=== PATIENT | male | born 1970 | race Hispanic/Latino ===

== ENCOUNTER 2018-01-14 06:08 | Emergency (ER) | payer MEDICARE ==
[~2018-01-14 06:08] MED LIST: GLIM2TAB3 PO; INSU100V12 SQ; LOSA50TA37 PO; SIMV20TA6 PO; TYL3B PO
[2018-01-14 07:12] LABS: BASOPHILS % (AUTO) 0.7 % (0.0-5.0); EOSINOPHILS % (AUTO) 2.2 % (0.0-8.0); HEMATOCRIT 43.7 % (42-54); LYMPHOCYTES % (AUTO) 22.5 % (21.0-51.0); MEAN CORPUSCULAR HEMOGLOBIN 28.8 pg (27.0-33.0); MEAN CORPUSCULAR HGB CONC 33.9 g/dL (32.0-36.0); MEAN CORPUSCULAR VOLUME 84.9 fL (79-99); NEUTROPHILS % (AUTO) 65.6 % (40.0-77.0); NUCLEATED RED BLOOD CELLS 0.1 % (0.0-0.19); PLATELET COUNT (AUTO) 256 K/uL (130-400); RED BLOOD CELL COUNT(AUTO) 5.15 MIL/uL (4.50-6.20); RED CELL DISTRIBUTION WIDTH 14.6 % (11.0-15.5); WHITE BLOOD COUNT (AUTO) 12.2 K/uL (4.8-10.8)
[2018-01-14 07:35] LABS: CREATININE 1.2 mg/dL (0.5-1.5)
[2018-01-14 07:41] LABS: ALBUMIN 3.1 g/dL (3.5-5.0); BILIRUBIN,TOTAL 0.4 mg/dL (0.2-1.0); TOTAL PROTEIN, SERUM 8.2 g/dL (6.0-8.3)
[2018-01-14] MEDS ORDERED: DiphenhydrAMINE HCL 50 MG/ML VIAL ONE (08:09)
[2018-01-14 08:23] LABS: SALICYLATE 4.5 mg/dL (2.8-20.0)
[2018-01-14 08:42] LABS: ACETAMINOPHEN < 1 mcg/mL (10-29); ALCOHOL, BLOOD < 3 mg/dL (0-10)
[2018-01-14 09:08] LABS: AMPHET/METH SCREEN,URINE NEGATIVE (NEGATIVE); BARBITURATE SCREEN, URINE NEGATIVE (NEGATIVE); BENZODIAZEPINES SCREEN,URINE NEGATIVE (NEGATIVE); CANNABINOID SCREEN,URINE POSITIVE (NEGATIVE); COCAINE SCREEN,URINE NEGATIVE (NEGATIVE); OPIATE SCREEN,URINE NEGATIVE (NEGATIVE); PHENCYCLIDINE SCREEN,URINE NEGATIVE (NEGATIVE)
[2018-04-07] MEDS ORDERED: VALS160T28 PO (22:42)
== END 2018-01-14 12:04 | disposition home or self-care (01) ==
LOC: EDH 06:08
DX: F41.1 Generalized anxiety disorder (principal); G47.00 Insomnia, unspecified; E11.65 Type 2 diabetes mellitus with hyperglycemia; I10 Essential (primary) hypertension; E78.5 Hyperlipidemia, unspecified; Z88.8 Allergy status to other drugs, medicaments and biological substances; Z90.49 Acquired absence of other specified parts of digestive tract; F19.20 Other psychoactive substance dependence, uncomplicated
CPT/HCPCS: 36415; 80053; 80305; 85025; 93005; 96372; 99285; G0480 ×2; G0481; J1200

== ENCOUNTER 2018-04-07 12:53 | Inpatient (IN) | payer MEDICARE ==
[~2018-04-07] VITALS: Ht 180.3 cm; Wt 116.1 kg
[2018-04-07] MEDS ORDERED: SODIUM CHLORIDE 0.9% 1000ML 1,000 ML IV ONE (13:55)
[2018-04-07] MEDS ORDERED: KETOROLAC TROMETHAMINE 30MG/ML ONE (13:55)
[2018-04-07] MEDS ORDERED: ONDANSETRON HCL MDV 20ML 2 MG/ML VIAL ONE (13:55)
[2018-04-07 13:58] LABS: BASOPHILS % (AUTO) 0.6 % (0.0-5.0); EOSINOPHILS % (AUTO) 1.1 % (0.0-8.0); HEMATOCRIT 46.1 % (42-54); LYMPHOCYTES % (AUTO) 17.7 % (21.0-51.0); MEAN CORPUSCULAR HEMOGLOBIN 30.2 pg (27.0-33.0); MEAN CORPUSCULAR HGB CONC 34.8 g/dL (32.0-36.0); MEAN CORPUSCULAR VOLUME 86.9 fL (79-99); MONOCYTES % (AUTO) 6.4 % (3.0-13.0); NEUTROPHILS % (AUTO) 74.2 % (40.0-77.0); PLATELET COUNT (AUTO) 339 K/uL (130-400); RED BLOOD CELL COUNT(AUTO) 5.31 MIL/uL (4.50-6.20); RED CELL DISTRIBUTION WIDTH 12.8 % (11.0-15.5); WHITE BLOOD COUNT (AUTO) 18.1 K/uL (4.8-10.8)
[2018-04-07 14:03] LABS: APPEARANCE,URINE Clear (CLEAR); BILIRUBIN,URINE Negative (NEGATIVE); COLOR,URINE Yellow (YELLOW); GLUCOSE, URINE (UA) >=1000 mg/dL (NEGATIVE); KETONES,URINE Negative (NEGATIVE); LEUKOCYTE ESTERASE ,URINE Negative (NEGATIVE); NITRATE,URINE Negative (NEGATIVE); OCCULT BLOOD,URINE Trace (NEGATIVE); PROTEIN,URINE 300 (NEGATIVE)
[2018-04-07 14:10] LABS: CREATININE 1.3 mg/dL (0.5-1.5); POTASSIUM 4.4 mmol/L (3.5-5.1)
[2018-04-07 14:14] LABS: ALBUMIN 4.1 g/dL (3.5-5.0); BILIRUBIN,TOTAL 0.4 mg/dL (0.2-1.0); TOTAL PROTEIN, SERUM 9.3 g/dL (6.0-8.3)
[2018-04-07 14:33] LABS: BACTERIA,URINE Few /HPF (None Seen); RBC,URINE 0-1 /HPF (0-1); WBC,URINE 0-1 /HPF (0-1)
[2018-04-07] MEDS ORDERED: IOPAMIDOL-370 75 ML VIAL IV ONE (14:38)
[2018-04-07] MEDS ORDERED: MORPHINE SULFATE 4 MG/1ML SYG ONE ×3 (16:03→19:11)
[2018-04-07] MEDS ORDERED: CEFTRIAXONE SODIUM 1 GM ONE (16:03)
[2018-04-07] MEDS ORDERED: ONDANSETRON HCL 4 MG/2 ML VIAL ONE ×2 (17:11→19:11)
[2018-04-07] MEDS ORDERED: DICYCLOMINE HCL 10 MG/ML 2ML AMP IM ONE (17:12)
[2018-04-07] MEDS ORDERED: METRONIDAZOLE 500MG/100ML BAG 100 ML ONE (19:19)
[2018-04-07] MEDS ORDERED: ONDANSETRON HCL 4 MG/2 ML VIAL IVP PRN (20:45)
[2018-04-07] MEDS ORDERED: DEXTROSE 50%-WATER 50 ML DISP.SYRIN IV PRN (21:00)
[2018-04-07] MEDS: HUMALOG PO SS1 SQ SCH (21:00)
[2018-04-07] MEDS ORDERED: GLUCAGON 1MG KIT 1 MG ML IM PRN (21:00)
[2018-04-07 22:12] VITALS: BP 170/84
[2018-04-07] MEDS: SODIUM CHLORIDE 0.9% 1000ML 1,000 ML IV SCH (22:22)
[2018-04-07] MEDS: FAMOTIDINE/PF 20 MG/2 ML VIAL IV SCH (22:26)
[2018-04-07] MEDS ORDERED: ALPR2TAB7 PO (22:42)
[2018-04-07] MEDS ORDERED: GEMF600T3 PO (22:42)
[2018-04-07] MEDS ORDERED: INSU100C14 SQ (22:42)
[2018-04-07] MEDS ORDERED: ASPI81TA40 PO (22:42)
[2018-04-07] MEDS ORDERED: VALS160T29 PO (22:42)
[2018-04-07] MEDS ORDERED: INSU100V12 SQ (22:42)
[2018-04-07] MEDS ORDERED: DULO30CA51 PO (22:42)
[2018-04-07] MEDS ORDERED: CLOP75TA32 PO (22:42)
[2018-04-07] MEDS: MORPHINE SULFATE 4 MG/1ML SYG IVP PRN (22:54)
[2018-04-08 00:25] VITALS: BP 163/93
[2018-04-08] MEDS ORDERED: HYDRALAZINE HCL 20 MG/ML VIAL IV PRN (00:45)
[2018-04-08] MEDS: METRONIDAZOLE 500MG/100ML BAG 100 ML IVPB SCH ×3 (02:27→19:12)
[2018-04-08] MEDS: MORPHINE SULFATE 4 MG/1ML SYG IVP PRN ×4 (03:23→20:46)
[2018-04-08 04:55] VITALS: BP 155/93
[2018-04-08 05:40] LABS: HEMATOCRIT 42.4 % (42-54); MEAN CORPUSCULAR HEMOGLOBIN 30.4 pg (27.0-33.0); MEAN CORPUSCULAR HGB CONC 34.8 g/dL (32.0-36.0); MEAN CORPUSCULAR VOLUME 87.3 fL (79-99); NUCLEATED RED BLOOD CELLS 0.1 % (0.0-0.19); PLATELET COUNT (AUTO) 287 K/uL (130-400); RED BLOOD CELL COUNT(AUTO) 4.86 MIL/uL (4.50-6.20); RED CELL DISTRIBUTION WIDTH 12.8 % (11.0-15.5); WHITE BLOOD COUNT (AUTO) 15.9 K/uL (4.8-10.8)
[2018-04-08] MEDS: SODIUM CHLORIDE 0.9% 1000ML 1,000 ML IV SCH ×3 (05:43→20:47)
[2018-04-08 05:56] LABS: CREATININE 1.2 mg/dL (0.5-1.5)
[2018-04-08] MEDS ORDERED: INSULIN HUMULIN R 100 UNIT/ML 3ML IV SCH (06:30)
[2018-04-08] MEDS ORDERED: HYDROMORPHONE 1 MG/1 ML AMP IVP PRN ×2 (06:30→10:30)
[2018-04-08] MEDS ORDERED: DEXTROSE 50%-WATER 25 GM/50 ML VIAL IV SCH (06:30)
[2018-04-08] MEDS ORDERED: CALCIUM GLUCONATE 1 GM/10 ML VIAL IV SCH (06:30)
[2018-04-08] MEDS ORDERED: CALCIUM GLUCONATE 1 GM in SODIUM CHLORIDE 0.9% 50 ML IV SCH (06:43)
[2018-04-08] MEDS ORDERED: SODIUM POLYSTYRENE SULFONATE 15 GM/60 ML ML PO SCH (06:45)
[2018-04-08] MEDS ORDERED: DEXTROSE 50%-WATER 50 ML DISP.SYRIN IV SCH (07:00)
[2018-04-08] MEDS: HUMALOG PO SS1 SQ SCH ×3 (07:30→17:05)
[2018-04-08 08:00] VITALS: BP 164/83
[2018-04-08] MEDS: FAMOTIDINE/PF 20 MG/2 ML VIAL IV SCH ×2 (10:47→20:46)
[2018-04-08] MEDS: PROMETHAZINE HCL 25 MG/ML 1ML AMPULE IM PRN ×2 (10:47→23:40)
[2018-04-08 12:00] VITALS: BP 166/92
[2018-04-08] MEDS ORDERED: PHARMACY COMMUNICATION MISC SCH (15:30)
[2018-04-08 16:00] VITALS: BP 156/96
[2018-04-08] MEDS: LEVOFLOXACIN IV SCH (16:56)
[2018-04-08] MEDS: D5W IV SCH (16:56)
[2018-04-08 19:18] VITALS: BP 150/88
[2018-04-08] MEDS: INSULIN LISPRO 100 UNIT/ML 3ML SQ SCH (23:59)
[2018-04-09 00:15] VITALS: BP 163/92
[2018-04-09] MEDS: MORPHINE SULFATE 4 MG/1ML SYG IVP PRN ×5 (01:17→23:33)
[2018-04-09] MEDS: METRONIDAZOLE 500MG/100ML BAG 100 ML IVPB SCH ×3 (03:07→19:00)
[2018-04-09 04:10] VITALS: BP 148/80
[2018-04-09] MEDS: INSULIN LISPRO 100 UNIT/ML 3ML SQ SCH ×3 (06:06→22:05)
[2018-04-09 08:32] VITALS: BP 171/102
[2018-04-09] MEDS: FAMOTIDINE/PF 20 MG/2 ML VIAL IV SCH ×2 (09:40→21:49)
[2018-04-09] MEDS: SODIUM CHLORIDE 0.9% 1000ML 1,000 ML IV SCH ×2 (09:50→22:23)
[2018-04-09 12:08] VITALS: BP 141/93
[2018-04-09] MEDS: LEVOFLOXACIN IV SCH ×2 (12:30→17:18)
[2018-04-09] MEDS: D5W IV SCH ×2 (12:30→17:18)
[2018-04-09 15:26] VITALS: BP 159/95
[2018-04-09 19:25] VITALS: BP 151/89
[2018-04-10] VITALS (7 sets, daily range): BP systolic 125–163; BP diastolic 78–97
[2018-04-10] MEDS: METRONIDAZOLE 500MG/100ML BAG 100 ML IVPB SCH ×3 (03:23→19:47)
[2018-04-10] MEDS: INSULIN LISPRO 100 UNIT/ML 3ML SQ SCH ×4 (06:25→22:02)
[2018-04-10 07:09] LABS: BASOPHILS % (AUTO) 0.5 % (0.0-5.0); EOSINOPHILS % (AUTO) 1.8 % (0.0-8.0); HEMATOCRIT 38.8 % (42-54); LYMPHOCYTES % (AUTO) 17.4 % (21.0-51.0); MEAN CORPUSCULAR HEMOGLOBIN 30.4 pg (27.0-33.0); MEAN CORPUSCULAR HGB CONC 35.3 g/dL (32.0-36.0); MEAN CORPUSCULAR VOLUME 86.3 fL (79-99); MONOCYTES % (AUTO) 9.9 % (3.0-13.0); NEUTROPHILS % (AUTO) 70.4 % (40.0-77.0); PLATELET COUNT (AUTO) 270 K/uL (130-400); RED CELL DISTRIBUTION WIDTH 12.6 % (11.0-15.5); WHITE BLOOD COUNT (AUTO) 12.2 K/uL (4.8-10.8)
[2018-04-10 07:32] LABS: CREATININE 1.1 mg/dL (0.5-1.5); POTASSIUM 4.1 mmol/L (3.5-5.1)
[2018-04-10] MEDS: FAMOTIDINE/PF 20 MG/2 ML VIAL IV SCH ×2 (09:33→21:18)
[2018-04-10] MEDS: SODIUM CHLORIDE 0.9% 1000ML 1,000 ML IV SCH ×2 (09:41→17:52)
[2018-04-10] MEDS ORDERED: ACETAMINOPHEN-CODEINE 300/30MG TAB PO PRN (12:00)
[2018-04-10] MEDS: LEVOFLOXACIN IV SCH (17:44)
[2018-04-10] MEDS: D5W IV SCH (17:44)
[2018-04-10] MEDS ORDERED: ALPRAZOLAM 1 MG TAB PO SCH (21:00)
[2018-04-10] MEDS ORDERED: INSULIN GLARGINE 100 UNITS/ML 10 ML VIAL SQ SCH (21:00)
[2018-04-10] MEDS ORDERED: ATORVASTATIN CALCIUM 10 MG TABLET PO SCH (21:00)
[2018-04-10] MEDS: GEMFIBROZIL 600 MG TABLET PO SCH (21:19)
[2018-04-10] MEDS: GLIMEPIRIDE 2 MG TABLET PO SCH (21:19)
[2018-04-10] MEDS ORDERED: INSULIN LISPRO 100 UNIT/ML 3ML SQ ONE (22:20)
[2018-04-11] MEDS: SODIUM CHLORIDE 0.9% 1000ML 1,000 ML IV SCH ×2 (01:22→12:55)
[2018-04-11] MEDS: METRONIDAZOLE 500MG/100ML BAG 100 ML IVPB SCH ×2 (02:03→10:24)
[2018-04-11 03:37] VITALS: BP 150/83
[2018-04-11] MEDS: INSULIN LISPRO 100 UNIT/ML 3ML SQ SCH ×3 (06:12→16:35)
[2018-04-11 08:32] VITALS: BP 183/102
[2018-04-11] MEDS ORDERED: LOSARTAN 50 MG TABLET PO SCH (09:00)
[2018-04-11] MEDS ORDERED: ASPIRIN 81 MG EC TAB PO SCH (09:00)
[2018-04-11] MEDS ORDERED: DULOXETINE HCL 30 MG CAP PO SCH (09:00)
[2018-04-11] MEDS ORDERED: VALSARTAN 160 MG PO SCH (09:00)
[2018-04-11] MEDS ORDERED: ALPRAZOLAM 1 MG TAB PO SCH (09:00)
[2018-04-11] MEDS ORDERED: CLOPIDOGREL BISULFATE 75 MG TAB PO SCH (09:00)
[2018-04-11] MEDS: GEMFIBROZIL 600 MG TABLET PO SCH (09:59)
[2018-04-11] MEDS: GLIMEPIRIDE 2 MG TABLET PO SCH (10:00)
[2018-04-11] MEDS: FAMOTIDINE/PF 20 MG/2 ML VIAL IV SCH (10:02)
[2018-04-11 11:53] VITALS: BP 118/88
[2018-04-11] MEDS ORDERED: LEVO500T2 PO (14:41)
[2018-04-11] MEDS ORDERED: METR500T PO (14:41)
[2018-04-11] MEDS: D5W IV SCH (16:00)
[2018-04-11] MEDS: LEVOFLOXACIN IV SCH (16:00)
[2018-04-11 16:50] VITALS: BP 156/91
== END 2018-04-11 19:30 | disposition home or self-care (01) | DRG 392 ==
LOC: EDH 12:53 → OBSVTOIN 18:13 → EDHIP 18:13 → 3BH 21:47
PROVIDERS: ADMIT Family Medicine; ATTEND Family Medicine
DX: K57.32 Diverticulitis of large intestine without perforation or abscess without bleeding (principal); I10 Essential (primary) hypertension; E11.9 Type 2 diabetes mellitus without complications; E78.5 Hyperlipidemia, unspecified; E66.01 Morbid (severe) obesity due to excess calories; D72.829 Elevated white blood cell count, unspecified; E87.5 Hyperkalemia; F12.90 Cannabis use, unspecified, uncomplicated; Z68.35 Body mass index [BMI] 35.0-35.9, adult; Z95.5 Presence of coronary angioplasty implant and graft; Z88.6 Allergy status to analgesic agent; Z89.429 Acquired absence of other toe(s), unspecified side; Z83.3 Family history of diabetes mellitus; Z82.49 Family history of ischemic heart disease and other diseases of the circulatory system
CPT/HCPCS: 36415; 74177; 80048; 80053; 81001; 82150; 82948; 83690; 84132; 84484; 85025; 85027; 93005; J0500; J0610; J0696; J1815; J1885; J1956; J2270; J2405; J2550; J3490; J7030; J7070; Q9967

== ENCOUNTER 2018-04-29 11:52 | Emergency (ER) | payer MEDICARE ==
[~2018-04-29 11:52] MED LIST changes: +ALPR2TAB7 PO; +ASPI81TA40 PO; +CLOP75TA32 PO; +DULO30CA51 PO; +GEMF600T3 PO; +INSU100C14 SQ; +LEVO500T2 PO; +METR500T PO; +VALS160T28 PO
[2018-04-29 12:32] LABS: BASOPHILS % (AUTO) 0.6 % (0.0-5.0); EOSINOPHILS % (AUTO) 0.5 % (0.0-8.0); HEMATOCRIT 46.4 % (42-54); MEAN CORPUSCULAR HEMOGLOBIN 30.4 pg (27.0-33.0); MEAN CORPUSCULAR HGB CONC 35.8 g/dL (32.0-36.0); MEAN CORPUSCULAR VOLUME 84.9 fL (79-99); MONOCYTES % (AUTO) 5.9 % (3.0-13.0); PLATELET COUNT (AUTO) 372 K/uL (130-400); RED BLOOD CELL COUNT(AUTO) 5.46 MIL/uL (4.50-6.20); RED CELL DISTRIBUTION WIDTH 13.1 % (11.0-15.5); WHITE BLOOD COUNT (AUTO) 13.9 K/uL (4.8-10.8)
[2018-04-29 12:37] LABS: CREATININE 1.2 mg/dL (0.5-1.5); POTASSIUM 4.8 mmol/L (3.5-5.1)
[2018-04-29 12:42] LABS: BILIRUBIN,TOTAL 0.8 mg/dL (0.2-1.0); TOTAL PROTEIN, SERUM 9.1 g/dL (6.0-8.3)
[2018-04-29] MEDS ORDERED: SODIUM CHLORIDE 0.9% 1000ML 1,000 ML IV ONE (12:48)
[2018-04-29] MEDS ORDERED: KETOROLAC TROMETHAMINE 30MG/ML ONE (12:48)
[2018-04-29] MEDS ORDERED: ONDANSETRON HCL 4 MG/2 ML VIAL ONE (12:48)
[2018-04-29 12:50] LABS: APPEARANCE,URINE Clear (CLEAR); BILIRUBIN,URINE Negative (NEGATIVE); COLOR,URINE Yellow (YELLOW); GLUCOSE, URINE (UA) >=1000 mg/dL (NEGATIVE); KETONES,URINE Negative (NEGATIVE); LEUKOCYTE ESTERASE ,URINE Negative (NEGATIVE); NITRATE,URINE Negative (NEGATIVE); OCCULT BLOOD,URINE Negative (NEGATIVE); PROTEIN,URINE 300 (NEGATIVE)
[2018-04-29 13:07] LABS: BACTERIA,URINE Rare /HPF (None Seen); RBC,URINE None Seen /HPF (0-1); SQUAMOUS EPITHELIAL CELL,UR Rare /HPF (0-2); WBC,URINE None Seen /HPF (0-1)
[2018-04-29 13:16] LABS: AMPHET/METH SCREEN,URINE NEGATIVE (NEGATIVE); BARBITURATE SCREEN, URINE NEGATIVE (NEGATIVE); BENZODIAZEPINES SCREEN,URINE POSITIVE (NEGATIVE); CANNABINOID SCREEN,URINE POSITIVE (NEGATIVE); COCAINE SCREEN,URINE NEGATIVE (NEGATIVE); OPIATE SCREEN,URINE NEGATIVE (NEGATIVE); PHENCYCLIDINE SCREEN,URINE NEGATIVE (NEGATIVE)
[2018-04-29] MEDS ORDERED: HYOSCYAMINE SULFATE 0.125 MG TAB.SUBL SL ONE (14:15)
== END 2018-04-29 14:27 | disposition home or self-care (01) ==
LOC: EDH 11:52
DX: E10.65 Type 1 diabetes mellitus with hyperglycemia (principal); R10.84 Generalized abdominal pain; E78.5 Hyperlipidemia, unspecified; I10 Essential (primary) hypertension; F12.10 Cannabis abuse, uncomplicated
CPT/HCPCS: 36415; 74176; 80053; 80305; 81001; 82150; 83690; 85025; 96361; 96374; 96375; 99285; J1885; J2405; J7030

== ENCOUNTER 2018-08-07 06:32 | Observation (INO) | payer MEDICARE ==
[2018-08-04 13:36] VITALS: BP 133/68
[2018-08-04 13:48] LABS: BASOPHILS % (AUTO) 0.8 % (0.0-5.0); HEMATOCRIT 40.9 % (42-54); LYMPHOCYTES % (AUTO) 20.1 % (21.0-51.0); MEAN CORPUSCULAR HEMOGLOBIN 30.7 pg (27.0-33.0); MEAN CORPUSCULAR HGB CONC 34.9 g/dL (32.0-36.0); MEAN CORPUSCULAR VOLUME 88.1 fL (79-99); MONOCYTES % (AUTO) 6.3 % (3.0-13.0); NEUTROPHILS % (AUTO) 70.8 % (40.0-77.0); PLATELET COUNT (AUTO) 266 K/uL (130-400); RED BLOOD CELL COUNT(AUTO) 4.65 MIL/uL (4.50-6.20); RED CELL DISTRIBUTION WIDTH 13.1 % (11.0-15.5); WHITE BLOOD COUNT (AUTO) 13.4 K/uL (4.8-10.8)
[2018-08-04 13:51] LABS: CREATININE 1.3 mg/dL (0.5-1.5); POTASSIUM 4.4 mmol/L (3.5-5.1)
[2018-08-04 13:55] LABS: INR 0.9 (0.85-1.15); PROTHROMBIN TIME 9.5 SEC (9.6-11.6)
[2018-08-04 13:58] LABS: APPEARANCE,URINE Clear (CLEAR); BILIRUBIN,URINE Negative (NEGATIVE); COLOR,URINE Yellow (YELLOW); GLUCOSE, URINE (UA) >=1000 mg/dL (NEGATIVE); KETONES,URINE Negative (NEGATIVE); LEUKOCYTE ESTERASE ,URINE Negative (NEGATIVE); NITRATE,URINE Negative (NEGATIVE); OCCULT BLOOD,URINE Negative (NEGATIVE); PH,URINE 5.5 (5.0-8.0); PROTEIN,URINE Trace (NEGATIVE)
[2018-08-04 14:03] LABS: BACTERIA,URINE Rare /HPF (None Seen); RBC,URINE 0-1 /HPF (0-1); SQUAMOUS EPITHELIAL CELL,UR Rare /HPF (0-2); WBC,URINE 0-1 /HPF (0-1)
[~2018-08-07] VITALS: Ht 177.8 cm; Wt 113.8 kg
[2018-08-07] VITALS (17 sets, daily range): BP systolic 118–178; BP diastolic 53–95
[~2018-08-07 06:32] MED LIST changes: +ALPR0.5T8 PO; -ALPR2TAB7 PO; -GEMF600T3 PO; -LEVO500T2 PO; -LOSA50TA37 PO; +METO-408 PO; -METR500T PO; -SIMV20TA6 PO; +SODIUM CHLORIDE 0.9% 1000ML 1,000 ML IV ONE; -TYL3B PO; -VALS160T28 PO; +VALS160T29 PO
[2018-08-07] MEDS ORDERED: SODIUM CHLORIDE 0.9% 1000ML 1,000 ML IV ONE (06:34)
[2018-08-07] MEDS ORDERED: SODIUM BICARB 50MEQ 50ML VIAL ONE (07:20)
[2018-08-07] MEDS ORDERED: LIDOCAINE HCL-MPF 2% 5ML VIAL ONE (07:20)
[2018-08-07] MEDS ORDERED: IOHEXOL 350 MG/ML 100ML INFUS..BTL IV ONE (07:21)
[2018-08-07] MEDS ORDERED: IOHEXOL-350 50ML VIAL IV ONE (07:21)
[2018-08-07] MEDS ORDERED: LOSA100T20 PO (07:22)
[2018-08-07] MEDS ORDERED: HEPARIN SODIUM 1000UNIT/ML 10ML VIAL ONE (07:34)
[2018-08-07] MEDS ORDERED: NITROGLYCERIN 5 MG/ML 10 ML VIAL IV ONE (07:40)
[2018-08-07] MEDS ORDERED: MIDAZOLAM HCL 1 MG/ML 2ML VIAL ONE ×2 (08:00→08:08)
[2018-08-07] MEDS ORDERED: MEPERIDINE-PF 25 MG/ML SYG ONE ×2 (08:01→08:09)
[2018-08-07] MEDS ORDERED: ACETAMINOPHEN-CODEINE 300/30MG TAB PO PRN ×2 (08:45)
[2018-08-07] MEDS ORDERED: DEXTROSE 50%-WATER 50 ML DISP.SYRIN IV PRN (08:45)
[2018-08-07] MEDS: CLOPIDOGREL BISULFATE 75 MG TAB PO SCH (09:00)
[2018-08-07] MEDS: METOPROLOL TARTRATE 25 MG TAB PO SCH ×2 (09:00→20:21)
[2018-08-07] MEDS: LOSARTAN 100 MG TABLET PO SCH (09:00)
[2018-08-07] MEDS: ASPIRIN 81MG TAB.CHEW PO SCH (09:00)
[2018-08-07] MEDS ORDERED: INSULIN HUMULIN R 100 UNIT/ML 3ML ONE (09:28)
[2018-08-07] MEDS ORDERED: INSULIN LISPRO 100 UNIT/ML 3ML SQ SCH (12:00)
[2018-08-07] MEDS: INSULIN LISPRO 100 UNIT/ML 3ML SQ SCH ×2 (13:23→17:21)
[2018-08-07] MEDS: INSULIN HUMULIN R 100 UNIT/ML 3ML SQ SCH ×3 (13:29→21:00)
[2018-08-07] MEDS: GLIMEPIRIDE 2 MG TABLET PO SCH (13:58)
[2018-08-07] MEDS: DULOXETINE HCL 30 MG CAP PO SCH (13:58)
[2018-08-07] MEDS: SODIUM CHLORIDE 0.9% 1000ML 1,000 ML IV SCH ×2 (16:03→18:42)
[2018-08-07] MEDS: ONDANSETRON HCL 4 MG/2 ML VIAL IVP PRN (18:41)
[2018-08-07] MEDS ORDERED: INSULIN GLARGINE 100 UNITS/ML 10 ML VIAL SQ SCH ×2 (21:00)
[2018-08-07] MEDS ORDERED: ALPRAZOLAM 0.5 MG TABLET PO SCH (21:00)
[2018-08-08] VITALS: BP 156/91
[2018-08-08] MEDS: ONDANSETRON HCL 4 MG/2 ML VIAL IVP PRN ×2 (00:59→09:03)
[2018-08-08] MEDS: SODIUM CHLORIDE 0.9% 1000ML 1,000 ML IV SCH (04:06)
[2018-08-08 04:14] LABS: HEMATOCRIT 41.8 % (42-54); MEAN CORPUSCULAR HEMOGLOBIN 31.3 pg (27.0-33.0); MEAN CORPUSCULAR HGB CONC 35.2 g/dL (32.0-36.0); MEAN CORPUSCULAR VOLUME 89.1 fL (79-99); PLATELET COUNT (AUTO) 260 K/uL (130-400); RED BLOOD CELL COUNT(AUTO) 4.68 MIL/uL (4.50-6.20); RED CELL DISTRIBUTION WIDTH 13.2 % (11.0-15.5); WHITE BLOOD COUNT (AUTO) 15.2 K/uL (4.8-10.8)
[2018-08-08 04:31] LABS: CREATININE 1.1 mg/dL (0.5-1.5); POTASSIUM 4.3 mmol/L (3.5-5.1)
[2018-08-08 04:39] VITALS: BP 150/89
[2018-08-08] MEDS ORDERED: METOCLOPRAMIDE 10 MG TABLET PO SCH (08:00)
[2018-08-08 08:12] VITALS: BP 141/83
[2018-08-08] MEDS: DULOXETINE HCL 30 MG CAP PO SCH (09:00)
[2018-08-08] MEDS: GLIMEPIRIDE 2 MG TABLET PO SCH (09:00)
[2018-08-08 09:06] VITALS: BP 157/83
[2018-08-08] MEDS: INSULIN LISPRO 100 UNIT/ML 3ML SQ SCH ×3 (09:15→17:31)
[2018-08-08] MEDS: INSULIN HUMULIN R 100 UNIT/ML 3ML SQ SCH ×3 (09:16→16:30)
[2018-08-08] MEDS ORDERED: LACTULOSE 20 GM/30 ML UDCUP PO SCH (10:45)
[2018-08-08 12:25] VITALS: BP 151/89
[2018-08-08] MEDS: METOCLOPRAMIDE 10 MG/2 ML VIAL IVP SCH ×2 (12:52→17:27)
[2018-08-08] MEDS: METOPROLOL TARTRATE 25 MG TAB PO SCH (12:52)
[2018-08-08] MEDS: ASPIRIN 81MG TAB.CHEW PO SCH (12:52)
[2018-08-08] MEDS: LOSARTAN 100 MG TABLET PO SCH (12:52)
[2018-08-08] MEDS: CLOPIDOGREL BISULFATE 75 MG TAB PO SCH (12:53)
[2018-08-08 16:00] VITALS: BP 137/79
== END 2018-08-08 18:48 | disposition home or self-care (01) ==
LOC: DAH 06:32 → DAHIP 06:33 → DAH 06:33 → 2DH 14:55
PROVIDERS: ADMIT Internal Medicine Cardiovascular Disease; ATTEND Internal Medicine Cardiovascular Disease
DX: I25.119 Atherosclerotic heart disease of native coronary artery with unspecified angina pectoris (principal); E11.43 Type 2 diabetes mellitus with diabetic autonomic (poly)neuropathy; E66.01 Morbid (severe) obesity due to excess calories; E78.2 Mixed hyperlipidemia; I11.0 Hypertensive heart disease with heart failure; I50.32 Chronic diastolic (congestive) heart failure; K31.84 Gastroparesis; Z82.49 Family history of ischemic heart disease and other diseases of the circulatory system; Z83.3 Family history of diabetes mellitus; Z96.659 Presence of unspecified artificial knee joint; Z79.01 Long term (current) use of anticoagulants; Z79.899 Other long term (current) drug therapy; Z79.4 Long term (current) use of insulin
CPT/HCPCS: 36415 ×3; 71045; 74018; 80048 ×2; 80061; 81001; 82948 ×9; 85025; 85027; 85347 ×2; 85610; 85730; 93005; 93458; 96372 ×2; 96374; 96375; 96376; A4606; C1760 ×2; C1769; C1874 ×2; C1887; C1894; C9600; G0378 ×36; J1644 ×2; J1815 ×5; J2175 ×2; J2250 ×2; J2405 ×3; J2765 ×2; J3490 ×3; J7030 ×3; Q9965; Q9967 ×2; 99156; 99157

== ENCOUNTER 2018-11-22 00:13 | Observation (INO) | payer MEDICARE ==
[~2018-11-22 00:13] MED LIST changes: +CLIN300C9 PO; +LOSA100T58 PO; -SODIUM CHLORIDE 0.9% 1000ML 1,000 ML IV ONE; -VALS160T29 PO
[2018-11-22] MEDS ORDERED: NITROGLYCERIN 1GM/1 INCH PACKET TD ONE ×2 (00:39→08:45)
[2018-11-22] MEDS ORDERED: ASPIRIN 325 MG TABLET ONE (00:39)
[2018-11-22 00:47] LABS: CREATININE 1.3 mg/dL (0.5-1.5); POTASSIUM 3.7 mmol/L (3.5-5.1)
[2018-11-22 00:52] LABS: INR 0.9 (0.85-1.15); PARTIAL THROMBOPLASTIN TIME 29.6 SEC (26.3-35.5); PROTHROMBIN TIME 9.5 SEC (9.6-11.6)
[2018-11-22] MEDS ORDERED: ONDANSETRON HCL 4 MG/2 ML VIAL ONE ×2 (00:53→08:52)
[2018-11-22 00:54] LABS: BASOPHILS % (AUTO) 0.5 % (0.0-5.0); EOSINOPHILS % (AUTO) 0.4 % (0.0-8.0); HEMATOCRIT 40.8 % (42-54); LYMPHOCYTES % (AUTO) 14.9 % (21.0-51.0); MEAN CORPUSCULAR HGB CONC 33.9 g/dL (32.0-36.0); MEAN CORPUSCULAR VOLUME 88.4 fL (79-99); MONOCYTES % (AUTO) 8.3 % (3.0-13.0); NEUTROPHILS % (AUTO) 75.9 % (40.0-77.0); NUCLEATED RED BLOOD CELLS 0.1 % (0.0-0.19); PLATELET COUNT (AUTO) 304 K/uL (130-400); RED BLOOD CELL COUNT(AUTO) 4.61 MIL/uL (4.50-6.20); RED CELL DISTRIBUTION WIDTH 12.9 % (11.0-15.5); WHITE BLOOD COUNT (AUTO) 20.1 K/uL (4.8-10.8)
[2018-11-22 00:59] LABS: ALBUMIN 3.3 g/dL (3.5-5.0); TOTAL PROTEIN, SERUM 7.8 g/dL (6.0-8.3)
[2018-11-22] MEDS ORDERED: MORPHINE SULFATE 2 MG/ML 1ML SYG ONE ×2 (01:22→04:38)
[2018-11-22] MEDS ORDERED: MORPHINE SULFATE 4 MG/1ML SYG IV PRN (02:00)
[2018-11-22] MEDS ORDERED: ACETAMINOPHEN 325 MG TAB PO PRN (02:00)
[2018-11-22] MEDS ORDERED: ONDANSETRON HCL 4 MG/2 ML VIAL IV PRN (02:00)
[2018-11-22] MEDS ORDERED: NITROGLYCERIN 1GM/1 INCH PACKET TD SCH (02:00)
[2018-11-22 03:31] LABS: APPEARANCE,URINE Cloudy (CLEAR); BILIRUBIN,URINE Negative (NEGATIVE); COLOR,URINE Yellow (YELLOW); GLUCOSE, URINE (UA) >=1000 mg/dL (NEGATIVE); KETONES,URINE Negative (NEGATIVE); LEUKOCYTE ESTERASE ,URINE Negative (NEGATIVE); NITRATE,URINE Negative (NEGATIVE); OCCULT BLOOD,URINE Negative (NEGATIVE); PROTEIN,URINE POS 2+ (NEGATIVE)
[2018-11-22 03:50] LABS: BACTERIA,URINE None Seen /HPF (None Seen); RBC,URINE None Seen /HPF (0-1); SQUAMOUS EPITHELIAL CELL,UR Few /HPF (0-2); WBC,URINE None Seen /HPF (0-1); YEAST,URINE BUDDING None Seen /HPF (None Seen)
[2018-11-22] MEDS ORDERED: ENOXAPARIN SODIUM 30 MG/0.3 ML SQ ONE (08:45)
[2018-11-22] MEDS ORDERED: LOSARTAN 50 MG TABLET ONE (08:46)
[2018-11-22] MEDS ORDERED: METOPROLOL TARTRATE 25 MG TAB ONE (08:46)
[2018-11-22] MEDS ORDERED: INSULIN HUMULIN R 100 UNIT/ML 3ML ONE (08:49)
[2018-11-22] MEDS ORDERED: FAMOTIDINE/PF 20 MG/2 ML VIAL IV ONE (08:49)
[2018-11-22] MEDS ORDERED: FAMOTIDINE/PF 20 MG/2 ML VIAL IV SCH (09:00)
[2018-11-22] MEDS ORDERED: DULOXETINE HCL 30 MG CAP PO SCH (09:00)
[2018-11-22] MEDS ORDERED: ATORVASTATIN CALCIUM 10 MG TABLET PO SCH (09:00)
[2018-11-22] MEDS ORDERED: ASPIRIN 325 MG TABLET PO SCH (09:00)
[2018-11-22] MEDS ORDERED: LOSARTAN 100 MG TABLET PO SCH (09:00)
[2018-11-22] MEDS ORDERED: ENOXAPARIN SODIUM 30 MG/0.3 ML SQ SCH (09:00)
[2018-11-22] MEDS ORDERED: ***HM***Metoprolol Succinate 25 MG PO SCH (09:00)
[2018-11-22] MEDS ORDERED: ACETAMINOPHEN 325 MG TAB ONE (10:05)
[2018-11-22] MEDS ORDERED: GEMF600T5 PO (11:00)
[2018-11-22] MEDS ORDERED: VALS160T29 PO (11:00)
[2018-11-22] MEDS ORDERED: ALPRAZOLAM 0.5 MG TABLET PO SCH (21:00)
[2018-11-23] MEDS ORDERED: ASPIRIN 81MG TAB.CHEW PO SCH (09:00)
== END 2018-11-22 11:47 ==
LOC: EDH 00:13 → EDHIP 01:45
PROVIDERS: ADMIT Internal Medicine; ATTEND Internal Medicine
DX: I25.119 Atherosclerotic heart disease of native coronary artery with unspecified angina pectoris (principal); D72.829 Elevated white blood cell count, unspecified; E11.9 Type 2 diabetes mellitus without complications; E78.5 Hyperlipidemia, unspecified; I10 Essential (primary) hypertension; M94.0 Chondrocostal junction syndrome [Tietze]; Z95.5 Presence of coronary angioplasty implant and graft; Z96.653 Presence of artificial knee joint, bilateral; Z89.411 Acquired absence of right great toe; Z79.4 Long term (current) use of insulin; Z79.899 Other long term (current) drug therapy; Z82.49 Family history of ischemic heart disease and other diseases of the circulatory system; Z83.3 Family history of diabetes mellitus; Z79.01 Long term (current) use of anticoagulants
CPT/HCPCS: 36415; 71045; 80053; 81001; 82550; 82948; 83690; 83874; 83880; 84484 ×2; 85025; 85610; 85730; 93005; 99284; G0378 ×10; J1650; J1815; J2405 ×2; J3490

== ENCOUNTER 2021-03-13 20:50 | Emergency (ER) | payer MEDICARE, OTHER ==
[~2021-03-13 20:50] MED LIST changes: -ALPR0.5T8 PO; -CLIN300C9 PO; -DULO30CA51 PO; +DULO30CA52 PO; +GEMF600T89 PO; -GLIM2TAB3 PO; +GLIM2TAB30 PO; -LOSA100T58 PO; +VALS160T29 PO
[2021-03-13 21:52] LABS: BASOPHILS % (AUTO) 0.6 % (0.0-5.0); EOSINOPHILS % (AUTO) 2.1 % (0.0-8.0); HEMATOCRIT 39.7 % (42-54); MEAN CORPUSCULAR HEMOGLOBIN 26.8 pg (27.0-33.0); MEAN CORPUSCULAR HGB CONC 32.5 g/dL (32.0-36.0); MEAN CORPUSCULAR VOLUME 82.4 fL (79-99); MONOCYTES % (AUTO) 8.6 % (3.0-13.0); NEUTROPHILS % (AUTO) 63.1 % (40.0-77.0); PLATELET COUNT (AUTO) 128 K/uL (130-400); RED BLOOD CELL COUNT(AUTO) 4.82 MIL/uL (4.50-6.20); RED CELL DISTRIBUTION WIDTH 15.4 % (11.0-15.5); WHITE BLOOD COUNT (AUTO) 8.4 K/uL (4.8-10.8)
[2021-03-13 22:00] LABS: CREATININE 1.3 mg/dL (0.5-1.5); POTASSIUM 4.5 mmol/L (3.5-5.1)
[2021-03-13 22:04] LABS: ALBUMIN 3.6 g/dL (3.5-5.0); BILIRUBIN,TOTAL 0.4 mg/dL (0.2-1.0); TOTAL PROTEIN, SERUM 7.3 g/dL (6.0-8.3)
[2021-03-13 22:11] LABS: B-TYPE NATRIURETIC PEPTIDE 16 pg/mL (0-100)
[2021-03-13 23:11] LABS: INR 0.92 (0.85-1.15); PROTHROMBIN TIME 10.1 SEC (9.6-11.6)
[2021-03-13] MEDS ORDERED: KETOROLAC TROMETHAMINE 30MG/ML ONE (23:14)
[2021-03-13] MEDS ORDERED: INSULIN HUMULIN R 100 UNIT/ML 3ML ONE (23:22)
[2021-03-14] MEDS ORDERED: LIDOCAINE HCL 1% 20 ML VIAL ONE (00:34)
[2021-03-14 01:19] LABS: APPEARANCE,URINE Clear (CLEAR); BILIRUBIN,URINE Negative (NEGATIVE); COLOR,URINE Yellow (YELLOW); GLUCOSE, URINE (UA) >=1000 mg/dL (NEGATIVE); KETONES,URINE Negative (NEGATIVE); LEUKOCYTE ESTERASE ,URINE Negative (NEGATIVE); NITRATE,URINE Negative (NEGATIVE); OCCULT BLOOD,URINE Negative (NEGATIVE); PH,URINE 5.5 (5.0-8.0); PROTEIN,URINE POS 2+ mg/dL (NEGATIVE)
[2021-03-14 01:27] LABS: AMPHET/METH SCREEN,URINE NEGATIVE (NEGATIVE); BARBITURATE SCREEN, URINE NEGATIVE (NEGATIVE); BENZODIAZEPINES SCREEN,URINE NEGATIVE (NEGATIVE); CANNABINOID SCREEN,URINE NEGATIVE (NEGATIVE); COCAINE SCREEN,URINE NEGATIVE (NEGATIVE); OPIATE SCREEN,URINE NEGATIVE (NEGATIVE); PHENCYCLIDINE SCREEN,URINE NEGATIVE (NEGATIVE)
[2021-03-14 01:33] LABS: BACTERIA,URINE None Seen /HPF (None Seen); RBC,URINE None Seen /HPF (0-1); SQUAMOUS EPITHELIAL CELL,UR Few /HPF (0-2); WBC,URINE None Seen /HPF (0-1); YEAST,URINE BUDDING None Seen /HPF (None Seen)
== END 2021-03-14 02:15 | disposition home or self-care (01) ==
LOC: EDH 20:50
DX: M79.605 Pain in left leg (principal); T14.8XXA Other injury of unspecified body region, initial encounter; E86.0 Dehydration; E11.65 Type 2 diabetes mellitus with hyperglycemia; Z20.822 Contact with and (suspected) exposure to COVID-19; I25.10 Atherosclerotic heart disease of native coronary artery without angina pectoris; F41.9 Anxiety disorder, unspecified; E78.5 Hyperlipidemia, unspecified; I10 Essential (primary) hypertension; Z88.2 Allergy status to sulfonamides; X58.XXXA Exposure to other specified factors, initial encounter; Y93.89 Activity, other specified; Y92.89 Other specified places as the place of occurrence of the external cause; Y99.8 Other external cause status
CPT/HCPCS: 36415; 73700; 80053; 80305; 81001; 82550; 82948; 83880; 84484; 85025; 85610; 85730; 87040 ×2; 87426; 93005; 93971; 96361; 96374; 96375 ×2; 99285; J1815; J1885; U0003

== ENCOUNTER 2021-03-18 23:55 | Inpatient (IN) | payer MEDICARE, OTHER ==
[~2021-03-18] VITALS: Ht 180.3 cm; Wt 113.6 kg
[2021-03-19] MEDS ORDERED: ORPHENADRINE CITRATE 30 MG/ML ML ONE (00:40)
[2021-03-19] MEDS ORDERED: KETOROLAC 30MG VIAL (30MG/ML) ONE (00:41)
[2021-03-19] MEDS ORDERED: SODIUM CHLORIDE 0.9% 1000ML 2,000 ML IV ONE (00:41)
[2021-03-19 00:58] LABS: BASOPHILS % (AUTO) 0.7 % (0.0-5.0); EOSINOPHILS % (AUTO) 2.3 % (0.0-8.0); HEMATOCRIT 37.5 % (42-54); LYMPHOCYTES % (AUTO) 28.4 % (21.0-51.0); MEAN CORPUSCULAR HEMOGLOBIN 26.7 pg (27.0-33.0); MEAN CORPUSCULAR HGB CONC 32.8 g/dL (32.0-36.0); MEAN CORPUSCULAR VOLUME 81.3 fL (79-99); MONOCYTES % (AUTO) 9.4 % (3.0-13.0); NEUTROPHILS % (AUTO) 57.8 % (40.0-77.0); PLATELET COUNT (AUTO) 265 K/uL (130-400); RED BLOOD CELL COUNT(AUTO) 4.61 MIL/uL (4.50-6.20); RED CELL DISTRIBUTION WIDTH 15.8 % (11.0-15.5); WHITE BLOOD COUNT (AUTO) 10.1 K/uL (4.8-10.8)
[2021-03-19 01:05] LABS: CREATININE 1.1 mg/dL (0.5-1.5); POTASSIUM 3.6 mmol/L (3.5-5.1)
[2021-03-19 01:13] LABS: ALBUMIN 3.4 g/dL (3.5-5.0); BILIRUBIN,TOTAL 0.3 mg/dL (0.2-1.0); TOTAL PROTEIN, SERUM 7.2 g/dL (6.0-8.3)
[2021-03-19 01:14] LABS: INR 0.98 (0.85-1.15); PROTHROMBIN TIME 10.7 SEC (9.6-11.6)
[2021-03-19 01:16] LABS: PARTIAL THROMBOPLASTIN TIME 25.1 SEC (26.3-35.5)
[2021-03-19 01:51] LABS: APPEARANCE,URINE Clear (CLEAR); BILIRUBIN,URINE Negative (NEGATIVE); COLOR,URINE Yellow (YELLOW); GLUCOSE, URINE (UA) >=1000 mg/dL (NEGATIVE); KETONES,URINE Negative (NEGATIVE); LEUKOCYTE ESTERASE ,URINE Negative (NEGATIVE); NITRATE,URINE Negative (NEGATIVE); OCCULT BLOOD,URINE Negative (NEGATIVE); PH,URINE 6.5 (5.0-8.0); PROTEIN,URINE POS 2+ mg/dL (NEGATIVE)
[2021-03-19 02:02] LABS: BACTERIA,URINE Rare /HPF (None Seen); RBC,URINE 0-1 /HPF (0-1); WBC,URINE 0-1 /HPF (0-1)
[2021-03-19 02:03] LABS: SQUAMOUS EPITHELIAL CELL,UR None Seen /HPF (0-2)
[2021-03-19] MEDS ORDERED: LIDOCAINE PF 100MG/5ML (2%) SYRINGE 5ML ONE (02:14)
[2021-03-19] MEDS ORDERED: ACETAMINOPHEN-CODEINE 300/30MG TAB ONE (03:23)
[2021-03-19] MEDS ORDERED: CLINDAMYCIN 900 MG/D5% WATER 50 ML IV ONE (03:24)
[2021-03-19] MEDS ORDERED: ENOXAPARIN SODIUM 100 MG/1 ML SQ ONE (03:33)
[2021-03-19] MEDS ORDERED: VANCOMYCIN KIT 250 ML IV ONE (04:10)
[2021-03-19] MEDS ORDERED: SODIUM CHLORIDE 0.9% 500ML 500 ML IV ONE (04:10)
[2021-03-19 06:31] LABS: BASOPHILS % (AUTO) 0.5 % (0.0-5.0); EOSINOPHILS % (AUTO) 2.7 % (0.0-8.0); HEMATOCRIT 35.3 % (42-54); LYMPHOCYTES % (AUTO) 32.2 % (21.0-51.0); MEAN CORPUSCULAR HEMOGLOBIN 27.5 pg (27.0-33.0); MEAN CORPUSCULAR HGB CONC 33.1 g/dL (32.0-36.0); MEAN CORPUSCULAR VOLUME 82.9 fL (79-99); MONOCYTES % (AUTO) 9.1 % (3.0-13.0); PLATELET COUNT (AUTO) 252 K/uL (130-400); RED BLOOD CELL COUNT(AUTO) 4.26 MIL/uL (4.50-6.20); RED CELL DISTRIBUTION WIDTH 15.8 % (11.0-15.5); WHITE BLOOD COUNT (AUTO) 9.2 K/uL (4.8-10.8)
[2021-03-19 06:43] LABS: CREATININE 0.9 mg/dL (0.5-1.5); MAGNESIUM 1.6 mg/dL (1.80-2.40); POTASSIUM 3.7 mmol/L (3.5-5.1)
[2021-03-19 06:44] LABS: HEMOGLOBIN A1C 9.3 % (4.0-6.0)
[2021-03-19] MEDS ORDERED: ONDANSETRON 4 MG TABLET ONE ×2 (08:14→15:32)
[2021-03-19] MEDS ORDERED: MORPHINE 2 MG SYG (2MG/1ML) ONE ×3 (08:15→20:15)
[2021-03-19] MEDS ORDERED: INSULIN HUMULIN R 100 UNIT/ML 3ML ONE ×2 (12:22→17:01)
[2021-03-19] MEDS ORDERED: ONDANSETRON 4 MG TABLET PO PRN (15:00)
[2021-03-19] MEDS ORDERED: ENOXAPARIN SODIUM 120 MG/0.8ML SQ SCH (15:00)
[2021-03-19] MEDS ORDERED: MORPHINE 2 MG SYG (2MG/1ML) IVP PRN (15:00)
[2021-03-19] MEDS ORDERED: DEXTROSE 50%-WATER 50 ML DISP.SYRIN IV PRN (15:00)
[2021-03-19] MEDS ORDERED: ACETAMINOPHEN 325 MG TAB PO PRN (15:00)
[2021-03-19] MEDS ORDERED: GLUCAGON 1MG KIT 1 MG ML IM PRN (15:00)
[2021-03-19] MEDS: PHARMACY COMMUNICATION MISC SCH ×3 (15:00→23:00)
[2021-03-19] MEDS: INSULIN R PO SS1 SQ SCH (16:30)
[2021-03-20] MEDS ORDERED: MORPHINE 4 MG SYG (4MG/1ML) ONE ×2 (01:12→05:40)
[2021-03-20] MEDS ORDERED: INSULIN HUMULIN R 100 UNIT/ML 3ML ONE ×2 (09:15→13:21)
[2021-03-20] MEDS ORDERED: MORPHINE 2 MG SYG (2MG/1ML) ONE (13:06)
[2021-03-20] MEDS: ENOXAPARIN SODIUM 120 MG/0.8ML SQ SCH (17:11)
[2021-03-20] MEDS: HYDROMORPHONE 1MG AMP (1MG/ML) IVP PRN (19:05)
[2021-03-20 20:00] VITALS: BP 139/74
[2021-03-20] MEDS: INSULIN R PO SS1 SQ SCH (22:08)
[2021-03-20] MEDS: TRAMADOL HCL 50 MG TABLET PO PRN (22:11)
[2021-03-21] VITALS (7 sets, daily range): BP systolic 100–141; BP diastolic 59–83
[2021-03-21] MEDS: HYDROMORPHONE 1MG AMP (1MG/ML) IVP PRN ×4 (01:14→20:23)
[2021-03-21 05:20] LABS: BASOPHILS % (AUTO) 0.6 % (0.0-5.0); EOSINOPHILS % (AUTO) 2.4 % (0.0-8.0); HEMATOCRIT 37.8 % (42-54); LYMPHOCYTES % (AUTO) 29.4 % (21.0-51.0); MEAN CORPUSCULAR HGB CONC 31.7 g/dL (32.0-36.0); MONOCYTES % (AUTO) 9.2 % (3.0-13.0); NEUTROPHILS % (AUTO) 57.9 % (40.0-77.0); PLATELET COUNT (AUTO) 270 K/uL (130-400); RED BLOOD CELL COUNT(AUTO) 4.61 MIL/uL (4.50-6.20); WHITE BLOOD COUNT (AUTO) 9.3 K/uL (4.8-10.8)
[2021-03-21 05:38] LABS: MAGNESIUM 1.7 mg/dL (1.80-2.40); POTASSIUM 4.2 mmol/L (3.5-5.1)
[2021-03-21] MEDS: TRAMADOL HCL 50 MG TABLET PO PRN (05:46)
[2021-03-21] MEDS: INSULIN R PO SS1 SQ SCH ×4 (06:58→20:17)
[2021-03-21] MEDS: ENOXAPARIN SODIUM 120 MG/0.8ML SQ SCH (20:16)
[2021-03-22] MEDS: HYDROMORPHONE 1MG AMP (1MG/ML) IVP PRN ×4 (02:00→20:10)
[2021-03-22 04:21] VITALS: BP 152/68
[2021-03-22] MEDS: INSULIN R PO SS1 SQ SCH ×4 (06:34→21:11)
[2021-03-22] MEDS: MAGNESIUM 2GM PREMIX 50ML 50 ML IV SCH (08:06)
[2021-03-22 08:56] LABS: CREATININE 0.9 mg/dL (0.5-1.5); POTASSIUM 3.8 mmol/L (3.5-5.1)
[2021-03-22 09:36] VITALS: BP 108/77
[2021-03-22 13:05] VITALS: BP 139/81
[2021-03-22] MEDS: ENOXAPARIN SODIUM 120 MG/0.8ML SQ SCH (17:40)
[2021-03-22 17:45] VITALS: BP 156/141
[2021-03-22] MEDS ORDERED: ALPR0.5T PO (17:57)
[2021-03-22] MEDS ORDERED: GABA600T10 PO (17:57)
[2021-03-22] MEDS ORDERED: PREG150C46 PO (17:57)
[2021-03-22] MEDS ORDERED: SERT-440 PO (17:57)
[2021-03-22] MEDS ORDERED: SIMV-43 PO (17:57)
[2021-03-22 20:00] VITALS: BP 122/72
[2021-03-22] MEDS: GEMFIBROZIL 600 MG TABLET PO SCH (20:08)
[2021-03-22] MEDS: GABAPENTIN 300 MG CAPSULE PO SCH (20:08)
[2021-03-22] MEDS: ALPRAZOLAM 0.5 MG TABLET PO SCH (20:08)
[2021-03-22] MEDS: PHARMACY COMMUNICATION MISC SCH (23:00)
[2021-03-23] VITALS (7 sets, daily range): BP systolic 130–167; BP diastolic 72–98
[2021-03-23] MEDS: HYDROMORPHONE 1MG AMP (1MG/ML) IVP PRN ×4 (02:04→21:37)
[2021-03-23] MEDS: PHARMACY COMMUNICATION MISC SCH ×6 (03:00→23:00)
[2021-03-23] MEDS: INSULIN R PO SS1 SQ SCH ×4 (06:09→21:48)
[2021-03-23] MEDS ORDERED: GLIMEPIRIDE 2 MG TABLET ONE (06:14)
[2021-03-23] MEDS: GLIMEPIRIDE 2 MG TABLET PO SCH (06:15)
[2021-03-23] MEDS: ASPIRIN 81 MG EC TAB PO SCH (08:24)
[2021-03-23] MEDS: GABAPENTIN 300 MG CAPSULE PO SCH ×3 (08:25→21:37)
[2021-03-23] MEDS: GEMFIBROZIL 600 MG TABLET PO SCH ×2 (08:25→21:38)
[2021-03-23] MEDS: PREGABALIN 75 MG CAPSULE PO SCH (08:25)
[2021-03-23] MEDS: SERTRALINE HCL 50 MG TABLET PO SCH (08:26)
[2021-03-23] MEDS: CLOPIDOGREL BISULFATE 75 MG TAB PO SCH (08:26)
[2021-03-23] MEDS: ALPRAZOLAM 0.5 MG TABLET PO SCH ×2 (08:26→21:37)
[2021-03-23] MEDS: DULOXETINE HCL 30 MG CAP PO SCH (08:33)
[2021-03-23] MEDS: ENOXAPARIN SODIUM 120 MG/0.8ML SQ SCH (18:46)
[2021-03-24] MEDS: PHARMACY COMMUNICATION MISC SCH ×2 (03:00→06:37)
[2021-03-24 03:57] VITALS: BP 130/68
[2021-03-24] MEDS: HYDROMORPHONE 1MG AMP (1MG/ML) IVP PRN ×4 (06:25→22:12)
[2021-03-24] MEDS: INSULIN R PO SS1 SQ SCH ×4 (06:36→21:00)
[2021-03-24] MEDS: GLIMEPIRIDE 2 MG TABLET PO SCH (06:55)
[2021-03-24 08:03] VITALS: BP 151/87
[2021-03-24] MEDS: ASPIRIN 81 MG EC TAB PO SCH (09:41)
[2021-03-24] MEDS: GABAPENTIN 300 MG CAPSULE PO SCH ×3 (09:42→20:12)
[2021-03-24] MEDS: PREGABALIN 75 MG CAPSULE PO SCH (09:42)
[2021-03-24] MEDS: ALPRAZOLAM 0.5 MG TABLET PO SCH ×2 (09:43→20:12)
[2021-03-24] MEDS: DULOXETINE HCL 30 MG CAP PO SCH (09:43)
[2021-03-24] MEDS: SERTRALINE HCL 50 MG TABLET PO SCH (09:43)
[2021-03-24] MEDS: GEMFIBROZIL 600 MG TABLET PO SCH ×2 (09:43→20:12)
[2021-03-24 11:29] VITALS: BP 100/51
[2021-03-24] MEDS: CLOPIDOGREL BISULFATE 75 MG TAB PO SCH (14:12)
[2021-03-24 16:44] VITALS: BP 138/77
[2021-03-24] MEDS: ENOXAPARIN SODIUM 120 MG/0.8ML SQ SCH (17:45)
[2021-03-24] MEDS ORDERED: HYDROMORPHONE 2 MG VIAL (2MG/ML) IVP PRN (18:30)
[2021-03-24 19:57] VITALS: BP 143/79
[2021-03-24 23:47] VITALS: BP 164/91
[2021-03-25] VITALS (7 sets, daily range): BP systolic 122–161; BP diastolic 48–90
[2021-03-25] MEDS: HYDROMORPHONE 1MG AMP (1MG/ML) IVP PRN ×7 (01:20→20:51)
[2021-03-25 04:57] LABS: HEMATOCRIT 36.7 % (42-54); MEAN CORPUSCULAR HEMOGLOBIN 26.6 pg (27.0-33.0); MEAN CORPUSCULAR VOLUME 80.7 fL (79-99); PLATELET COUNT (AUTO) 300 K/uL (130-400); RED BLOOD CELL COUNT(AUTO) 4.55 MIL/uL (4.50-6.20); RED CELL DISTRIBUTION WIDTH 15.1 % (11.0-15.5); WHITE BLOOD COUNT (AUTO) 9.4 K/uL (4.8-10.8)
[2021-03-25 05:13] LABS: CREATININE 0.9 mg/dL (0.5-1.5); PHOSPHORUS 3.9 mg/dL (2.5-4.9)
[2021-03-25 05:19] LABS: % IRON SATURATION 19.2 % (30-44)
[2021-03-25 05:25] LABS: BASOPHILS % (MANUAL) 1 % (0-2); EOSINOPHILS % (MANUAL) 2 % (1-6); LYMPHOCYTES % (MANUAL) 27 % (22-44); MAN.DIFF COMMENT-IMPRESSION MANUAL DIFFERENTIAL; MONOCYTES % (MANUAL) 2 % (2-9); PLATELET MORPHOLOGY COMMENT ADEQUATE; SEGMENTED NEUTROPHILS % 68 % (40-70)
[2021-03-25] MEDS: GLIMEPIRIDE 2 MG TABLET PO SCH (06:21)
[2021-03-25] MEDS: INSULIN R PO SS1 SQ SCH ×4 (06:23→21:16)
[2021-03-25] MEDS: CLOPIDOGREL BISULFATE 75 MG TAB PO SCH (09:09)
[2021-03-25] MEDS: ALPRAZOLAM 0.5 MG TABLET PO SCH ×2 (09:09→20:46)
[2021-03-25] MEDS: GABAPENTIN 300 MG CAPSULE PO SCH ×3 (09:09→20:46)
[2021-03-25] MEDS: ASPIRIN 81 MG EC TAB PO SCH (09:09)
[2021-03-25] MEDS: DULOXETINE HCL 30 MG CAP PO SCH (09:10)
[2021-03-25] MEDS: GEMFIBROZIL 600 MG TABLET PO SCH ×2 (09:10→20:47)
[2021-03-25] MEDS: SERTRALINE HCL 50 MG TABLET PO SCH (09:10)
[2021-03-25] MEDS: PREGABALIN 75 MG CAPSULE PO SCH (09:10)
[2021-03-25] MEDS: TRAMADOL HCL 50 MG TABLET PO PRN ×2 (11:53→15:49)
[2021-03-25] MEDS ORDERED: LACTATED RINGERS 1000ML 1,000 ML IV ONE (15:00)
[2021-03-25] MEDS: ENOXAPARIN SODIUM 120 MG/0.8ML SQ SCH (17:08)
[2021-03-25] MEDS: PHARMACY COMMUNICATION MISC SCH ×2 (19:00→22:53)
[2021-03-25] MEDS ORDERED: HYDROMORPHONE 1MG AMP (1MG/ML) IVP PRN ×2 (20:15)
[2021-03-26] MEDS: HYDROMORPHONE 1MG AMP (1MG/ML) IVP PRN ×10 (00:01→23:50)
[2021-03-26] MEDS: PHARMACY COMMUNICATION MISC SCH ×2 (03:00→06:13)
[2021-03-26 04:00] VITALS: BP 145/84
[2021-03-26] MEDS: INSULIN R PO SS1 SQ SCH ×4 (06:13→20:41)
[2021-03-26] MEDS: GLIMEPIRIDE 2 MG TABLET PO SCH (06:14)
[2021-03-26] MEDS: DULOXETINE HCL 30 MG CAP PO SCH (09:00)
[2021-03-26] MEDS: GABAPENTIN 300 MG CAPSULE PO SCH ×3 (09:00→22:05)
[2021-03-26] MEDS: GEMFIBROZIL 600 MG TABLET PO SCH ×2 (09:00→22:05)
[2021-03-26] MEDS: ASPIRIN 81 MG EC TAB PO SCH (09:00)
[2021-03-26] MEDS: PREGABALIN 75 MG CAPSULE PO SCH (09:00)
[2021-03-26] MEDS: SERTRALINE HCL 50 MG TABLET PO SCH (09:00)
[2021-03-26] MEDS: CLOPIDOGREL BISULFATE 75 MG TAB PO SCH (09:00)
[2021-03-26] MEDS: ALPRAZOLAM 0.5 MG TABLET PO SCH ×2 (09:00→22:05)
[2021-03-26 09:52] VITALS: BP 136/76
[2021-03-26] MEDS ORDERED: ALBUMIN (HUMAN) 5% 500 ML IV ONE (11:59)
[2021-03-26] MEDS ORDERED: KETAMINE 50MG/ML SYRINGE 50 MG/ML DISP.SYRIN IV ONE (12:00)
[2021-03-26 12:08] VITALS: BP 157/83
[2021-03-26] MEDS ORDERED: ROCURONIUM 10MG/1ML SYR 10 MG/ML ML ONE (12:08)
[2021-03-26] MEDS ORDERED: FENTANYL CITRATE PF 50 MCG/1 ML 2ML VIAL ONE (12:19)
[2021-03-26] MEDS ORDERED: MIDAZOLAM HCL 1 MG/ML 2ML VIAL ONE (12:19)
[2021-03-26] MEDS ORDERED: EPINEPHRINE 1 MG/ML AMPULE ONE (12:21)
[2021-03-26] MEDS ORDERED: ROPIVACAINE 0.5% 5MG/ML 30ML IJ ONE (12:25)
[2021-03-26 16:42] VITALS: BP 114/67
[2021-03-26] MEDS: ENOXAPARIN SODIUM 120 MG/0.8ML SQ SCH (17:00)
[2021-03-26 19:59] VITALS: BP 134/89
[2021-03-27] VITALS (7 sets, daily range): BP systolic 137–179; BP diastolic 61–85
[2021-03-27] MEDS: HYDROMORPHONE 1MG AMP (1MG/ML) IVP PRN ×7 (03:04→21:47)
[2021-03-27] MEDS: INSULIN R PO SS1 SQ SCH ×4 (06:34→21:55)
[2021-03-27] MEDS: GLIMEPIRIDE 2 MG TABLET PO SCH (06:34)
[2021-03-27] MEDS: GABAPENTIN 300 MG CAPSULE PO SCH ×3 (09:00→23:14)
[2021-03-27] MEDS: ASPIRIN 81 MG EC TAB PO SCH (09:00)
[2021-03-27] MEDS: DULOXETINE HCL 30 MG CAP PO SCH (09:00)
[2021-03-27] MEDS: GEMFIBROZIL 600 MG TABLET PO SCH ×2 (09:00→23:14)
[2021-03-27] MEDS: PREGABALIN 75 MG CAPSULE PO SCH (09:00)
[2021-03-27] MEDS: SERTRALINE HCL 50 MG TABLET PO SCH (09:00)
[2021-03-27] MEDS: CLOPIDOGREL BISULFATE 75 MG TAB PO SCH (12:41)
[2021-03-27] MEDS: ALPRAZOLAM 0.5 MG TABLET PO SCH ×2 (12:42→23:14)
[2021-03-27] MEDS: ENOXAPARIN SODIUM 120 MG/0.8ML SQ SCH (17:00)
[2021-03-28] VITALS (25 sets, daily range): BP systolic 102–160; BP diastolic 50–94
[2021-03-28] MEDS: HYDROMORPHONE 1MG AMP (1MG/ML) IVP PRN ×5 (01:12→22:28)
[2021-03-28] MEDS ORDERED: SODIUM CHLORIDE 0.9% 1000ML 1,000 ML IV ONE (07:22)
[2021-03-28] MEDS ORDERED: CEFAZOLIN SODIUM 1 GM VIAL ONE (07:22)
[2021-03-28] MEDS: INSULIN R PO SS1 SQ SCH ×4 (07:30→22:30)
[2021-03-28] MEDS: GLIMEPIRIDE 2 MG TABLET PO SCH (07:30)
[2021-03-28] MEDS ORDERED: MIDAZOLAM HCL 1 MG/ML 2ML VIAL ONE ×3 (07:55→09:10)
[2021-03-28] MEDS: SERTRALINE HCL 50 MG TABLET PO SCH (09:00)
[2021-03-28] MEDS: DULOXETINE HCL 30 MG CAP PO SCH (09:00)
[2021-03-28] MEDS: ASPIRIN 81 MG EC TAB PO SCH (09:00)
[2021-03-28] MEDS: GABAPENTIN 300 MG CAPSULE PO SCH ×3 (09:00→22:10)
[2021-03-28] MEDS: CLOPIDOGREL BISULFATE 75 MG TAB PO SCH (09:00)
[2021-03-28] MEDS: GEMFIBROZIL 600 MG TABLET PO SCH ×2 (09:00→22:09)
[2021-03-28] MEDS: PREGABALIN 75 MG CAPSULE PO SCH (09:00)
[2021-03-28] MEDS: ALPRAZOLAM 0.5 MG TABLET PO SCH ×2 (09:00→22:10)
[2021-03-28] MEDS: SODIUM CHLORIDE 0.9% 1000ML 1,000 ML IV SCH ×2 (09:45→19:45)
[2021-03-28] MEDS ORDERED: DIPHENHYDRAMINE HCL 25 MG CAPSULE PO PRN (09:45)
[2021-03-28] MEDS ORDERED: DiphenhydrAMINE HCL 50 MG/ML VIAL IVP PRN (09:45)
[2021-03-28] MEDS ORDERED: KCL 20 MEQ ERTAB PO PRN (09:45)
[2021-03-28] MEDS: ACETAMINOPHEN 500 MG TABLET PO SCH ×2 (09:45→16:26)
[2021-03-28] MEDS ORDERED: POTASSIUM CHLORIDE 10% ELIXIR 20 MEQ/15 ML UDCUP PO PRN (09:45)
[2021-03-28] MEDS ORDERED: POTASSIUM CHLORIDE 20MEQ/100ML 100 ML IV PRN (09:45)
[2021-03-28] MEDS: PSYLLIUM SEED 1 EACH PACKET PO SCH (11:54)
[2021-03-28] MEDS: HYDROCODONE/ACETAMINOPHEN 5/325 MG TAB PO PRN (15:00)
[2021-03-28] MEDS: CEFAZOLIN 3GM /D5W 100ML 100 ML IV SCH ×2 (15:53→22:11)
[2021-03-28] MEDS: ENOXAPARIN SODIUM 120 MG/0.8ML SQ SCH (16:27)
[2021-03-28] MEDS: KETOROLAC 15MG/ML VIAL (15MG/ML) IV PRN (21:14)
[2021-03-29] MEDS: HYDROCODONE/ACETAMINOPHEN 5/325 MG TAB PO PRN ×2 (00:39→20:41)
[2021-03-29] MEDS: ACETAMINOPHEN 500 MG TABLET PO SCH ×3 (00:40→17:16)
[2021-03-29] MEDS: HYDROMORPHONE 1MG AMP (1MG/ML) IVP PRN ×6 (01:22→21:34)
[2021-03-29 03:57] VITALS: BP 136/72
[2021-03-29 05:32] LABS: HEMATOCRIT 27.9 % (42-54); MEAN CORPUSCULAR HEMOGLOBIN 26.6 pg (27.0-33.0); MEAN CORPUSCULAR VOLUME 80.6 fL (79-99); RED BLOOD CELL COUNT(AUTO) 3.46 MIL/uL (4.50-6.20)
[2021-03-29] MEDS: SODIUM CHLORIDE 0.9% 1000ML 1,000 ML IV SCH (05:45)
[2021-03-29 05:46] LABS: MAGNESIUM 1.3 mg/dL (1.80-2.40); POTASSIUM 3.5 mmol/L (3.5-5.1)
[2021-03-29] MEDS: KETOROLAC 15MG/ML VIAL (15MG/ML) IV PRN (06:07)
[2021-03-29] MEDS: GLIMEPIRIDE 2 MG TABLET PO SCH ×2 (06:09→08:18)
[2021-03-29] MEDS: INSULIN R PO SS1 SQ SCH ×4 (06:12→20:35)
[2021-03-29 07:00] VITALS: BP 107/56
[2021-03-29] MEDS: ALPRAZOLAM 0.5 MG TABLET PO SCH ×2 (08:18→20:35)
[2021-03-29] MEDS: ASPIRIN 81 MG EC TAB PO SCH (08:18)
[2021-03-29] MEDS: DULOXETINE HCL 30 MG CAP PO SCH (08:19)
[2021-03-29] MEDS: SERTRALINE HCL 50 MG TABLET PO SCH (08:19)
[2021-03-29] MEDS: GEMFIBROZIL 600 MG TABLET PO SCH ×2 (08:19→20:34)
[2021-03-29] MEDS: POLYETHYLENE GLYCOL 3350 17 GM POWD.PACK PO SCH (08:19)
[2021-03-29] MEDS: CLOPIDOGREL BISULFATE 75 MG TAB PO SCH (08:19)
[2021-03-29] MEDS: PREGABALIN 75 MG CAPSULE PO SCH (08:19)
[2021-03-29] MEDS: GABAPENTIN 300 MG CAPSULE PO SCH ×3 (08:30→20:35)
[2021-03-29] MEDS: MAGNESIUM 2GM PREMIX 50ML 50 ML IV SCH ×2 (11:04→19:19)
[2021-03-29 11:30] VITALS: BP 102/61
[2021-03-29] MEDS: PSYLLIUM SEED 1 EACH PACKET PO SCH (12:11)
[2021-03-29 13:11] LABS: HEMATOCRIT 26.5 % (42-54); MEAN CORPUSCULAR VOLUME 82.3 fL (79-99); RED BLOOD CELL COUNT(AUTO) 3.22 MIL/uL (4.50-6.20); RED CELL DISTRIBUTION WIDTH 15.4 % (11.0-15.5); WHITE BLOOD COUNT (AUTO) 10.1 K/uL (4.8-10.8)
[2021-03-29 16:00] VITALS: BP 116/63
[2021-03-29] MEDS: ENOXAPARIN SODIUM 120 MG/0.8ML SQ SCH (17:15)
[2021-03-29 20:00] VITALS: BP 117/59
[2021-03-30] VITALS: BP 117/66
[2021-03-30] MEDS: HYDROMORPHONE 1MG AMP (1MG/ML) IVP PRN ×7 (01:25→20:03)
[2021-03-30] MEDS: KETOROLAC 15MG/ML VIAL (15MG/ML) IV PRN (02:21)
[2021-03-30] MEDS: ACETAMINOPHEN 500 MG TABLET PO SCH ×3 (03:11→17:12)
[2021-03-30 04:00] VITALS: BP 120/56
[2021-03-30] MEDS: INSULIN R PO SS1 SQ SCH ×4 (06:15→20:12)
[2021-03-30 08:00] VITALS: BP 123/63
[2021-03-30] MEDS ORDERED: BISACODYL 5 MG TABLET.DR PO PRN (09:45)
[2021-03-30] MEDS: FERROUS FUMARATE 324 MG TABLET PO PRN (10:31)
[2021-03-30] MEDS: GEMFIBROZIL 600 MG TABLET PO SCH ×2 (10:32→20:02)
[2021-03-30] MEDS: PREGABALIN 75 MG CAPSULE PO SCH (10:33)
[2021-03-30] MEDS: CLOPIDOGREL BISULFATE 75 MG TAB PO SCH (10:33)
[2021-03-30] MEDS: ASPIRIN 81 MG EC TAB PO SCH (10:33)
[2021-03-30] MEDS: DULOXETINE HCL 30 MG CAP PO SCH (10:34)
[2021-03-30] MEDS: POLYETHYLENE GLYCOL 3350 17 GM POWD.PACK PO SCH (10:34)
[2021-03-30] MEDS: SERTRALINE HCL 50 MG TABLET PO SCH (10:34)
[2021-03-30] MEDS: ALPRAZOLAM 0.5 MG TABLET PO SCH ×2 (10:34→20:02)
[2021-03-30] MEDS: GABAPENTIN 300 MG CAPSULE PO SCH ×3 (10:41→20:03)
[2021-03-30 12:00] VITALS: BP 143/69
[2021-03-30] MEDS: PSYLLIUM SEED 1 EACH PACKET PO SCH (12:42)
[2021-03-30] MEDS: HYDROCODONE/ACETAMINOPHEN 5/325 MG TAB PO PRN ×2 (15:34→22:15)
[2021-03-30 16:00] VITALS: BP 132/67
[2021-03-30] MEDS: ENOXAPARIN SODIUM 120 MG/0.8ML SQ SCH (17:12)
[2021-03-30 20:00] VITALS: BP 114/54
[2021-03-31] VITALS: BP 136/67
[2021-03-31] MEDS: ACETAMINOPHEN 500 MG TABLET PO SCH ×3 (01:45→17:10)
[2021-03-31] MEDS: HYDROCODONE/ACETAMINOPHEN 5/325 MG TAB PO PRN ×2 (02:00→11:17)
[2021-03-31 04:00] VITALS: BP 102/64
[2021-03-31] MEDS: INSULIN R PO SS1 SQ SCH ×4 (07:21→21:32)
[2021-03-31] MEDS: GLIMEPIRIDE 2 MG TABLET PO SCH (07:25)
[2021-03-31 08:00] VITALS: BP 133/66
[2021-03-31 08:16] LABS: MEAN CORPUSCULAR HEMOGLOBIN 27.9 pg (27.0-33.0); MEAN CORPUSCULAR HGB CONC 34.5 g/dL (32.0-36.0); MEAN CORPUSCULAR VOLUME 80.8 fL (79-99); NUCLEATED RED BLOOD CELLS 0.4 % (0.0-0.19); PLATELET COUNT (AUTO) 227 K/uL (130-400); RED BLOOD CELL COUNT(AUTO) 1.72 MIL/uL (4.50-6.20); RED CELL DISTRIBUTION WIDTH 15.1 % (11.0-15.5); WHITE BLOOD COUNT (AUTO) 13.8 K/uL (4.8-10.8)
[2021-03-31] MEDS: GEMFIBROZIL 600 MG TABLET PO SCH ×2 (09:05→20:35)
[2021-03-31] MEDS: ALPRAZOLAM 0.5 MG TABLET PO SCH ×2 (09:05→20:35)
[2021-03-31] MEDS: SERTRALINE HCL 50 MG TABLET PO SCH (09:05)
[2021-03-31] MEDS: POLYETHYLENE GLYCOL 3350 17 GM POWD.PACK PO SCH (09:05)
[2021-03-31] MEDS: PREGABALIN 75 MG CAPSULE PO SCH (09:05)
[2021-03-31] MEDS: DULOXETINE HCL 30 MG CAP PO SCH (09:05)
[2021-03-31] MEDS: GABAPENTIN 300 MG CAPSULE PO SCH ×3 (09:08→20:35)
[2021-03-31 09:35] LABS: HEMATOCRIT 13.9 % (42-54)
[2021-03-31] MEDS ORDERED: BISACODYL 10 MG SUPP.RECT RC PRN (09:45)
[2021-03-31 09:57] LABS: EOSINOPHILS % (MANUAL) 2 % (1-6); LYMPHOCYTES % (MANUAL) 15 % (22-44); MAN.DIFF COMMENT-IMPRESSION MANUAL DIFFERENTIAL; MONOCYTES % (MANUAL) 4 % (2-9); PLATELET MORPHOLOGY COMMENT ADEQUATE; SEGMENTED NEUTROPHILS % 79 % (40-70)
[2021-03-31] MEDS ORDERED: SODIUM CHLORIDE 0.9% 500ML 500 ML IV ONE ×2 (10:18→18:34)
[2021-03-31] MEDS: PSYLLIUM SEED 1 EACH PACKET PO SCH (11:15)
[2021-03-31 12:00] VITALS: BP 101/55
[2021-03-31 16:00] VITALS: BP 117/57
[2021-03-31] MEDS: HYDROMORPHONE 2 MG VIAL (2MG/ML) IVP PRN ×2 (17:11→20:39)
[2021-03-31 18:14] LABS: HEMATOCRIT 17.8 % (42-54)
[2021-03-31 20:00] VITALS: BP 133/65
[2021-04-01] VITALS: BP 132/81
[2021-04-01] MEDS: HYDROMORPHONE 2 MG VIAL (2MG/ML) IVP PRN ×4 (00:07→20:46)
[2021-04-01] MEDS: ACETAMINOPHEN 500 MG TABLET PO SCH ×3 (03:06→17:16)
[2021-04-01 04:00] VITALS: BP 123/76
[2021-04-01 04:15] LABS: HEMATOCRIT 19.5 % (42-54)
[2021-04-01] MEDS ORDERED: SODIUM CHLORIDE 0.9% 500ML 500 ML IV ONE (05:13)
[2021-04-01] MEDS: GLIMEPIRIDE 2 MG TABLET PO SCH (06:21)
[2021-04-01] MEDS: INSULIN R PO SS1 SQ SCH ×4 (06:31→20:45)
[2021-04-01 07:30] VITALS: BP 137/69
[2021-04-01 11:00] VITALS: BP 140/70
[2021-04-01] MEDS ORDERED: HYDROMORPHONE 1MG AMP (1MG/ML) ONE (11:58)
[2021-04-01] MEDS: PREGABALIN 75 MG CAPSULE PO SCH (12:00)
[2021-04-01] MEDS: PSYLLIUM SEED 1 EACH PACKET PO SCH (12:00)
[2021-04-01] MEDS: ALPRAZOLAM 0.5 MG TABLET PO SCH ×2 (12:00→20:38)
[2021-04-01] MEDS: DULOXETINE HCL 30 MG CAP PO SCH (12:01)
[2021-04-01] MEDS: GABAPENTIN 300 MG CAPSULE PO SCH ×3 (12:01→20:38)
[2021-04-01] MEDS: GEMFIBROZIL 600 MG TABLET PO SCH ×2 (12:01→20:38)
[2021-04-01] MEDS: SERTRALINE HCL 50 MG TABLET PO SCH (12:01)
[2021-04-01] MEDS: POLYETHYLENE GLYCOL 3350 17 GM POWD.PACK PO SCH (12:02)
[2021-04-01] MEDS ORDERED: DEXAMETHASONE 10MG/ML 1ML VIAL 10 MG in SODIUM CHLORIDE 0.9% 50 ML IV ONE (14:30)
[2021-04-01 16:00] VITALS: BP 138/69
[2021-04-01 18:24] LABS: HEMATOCRIT 20.9 % (42-54)
[2021-04-01 20:00] VITALS: BP 127/62
[2021-04-02] VITALS (7 sets, daily range): BP systolic 123–152; BP diastolic 52–70
[2021-04-02] MEDS: ACETAMINOPHEN 500 MG TABLET PO SCH ×3 (01:45→17:00)
[2021-04-02] MEDS: HYDROMORPHONE 2 MG VIAL (2MG/ML) IVP PRN ×2 (05:29→22:45)
[2021-04-02] MEDS: INSULIN R PO SS1 SQ SCH ×4 (06:54→20:19)
[2021-04-02] MEDS: GLIMEPIRIDE 2 MG TABLET PO SCH (06:54)
[2021-04-02] MEDS ORDERED: HYDROMORPHONE 0.5 MG SYG (0.5MG/0.5ML) ONE ×2 (09:13→15:27)
[2021-04-02] MEDS: POLYETHYLENE GLYCOL 3350 17 GM POWD.PACK PO SCH (09:16)
[2021-04-02] MEDS: PREGABALIN 75 MG CAPSULE PO SCH (09:16)
[2021-04-02] MEDS: GEMFIBROZIL 600 MG TABLET PO SCH ×2 (09:16→19:31)
[2021-04-02] MEDS: DULOXETINE HCL 30 MG CAP PO SCH (09:16)
[2021-04-02] MEDS: ALPRAZOLAM 0.5 MG TABLET PO SCH ×2 (09:16→19:31)
[2021-04-02] MEDS: SERTRALINE HCL 50 MG TABLET PO SCH (09:16)
[2021-04-02] MEDS: GABAPENTIN 300 MG CAPSULE PO SCH ×3 (09:17→19:31)
[2021-04-02 10:37] LABS: MEAN CORPUSCULAR HEMOGLOBIN 29.3 pg (27.0-33.0); MEAN CORPUSCULAR HGB CONC 34.5 g/dL (32.0-36.0); MEAN CORPUSCULAR VOLUME 85.1 fL (79-99); NUCLEATED RED BLOOD CELLS 3.4 % (0.0-0.19); RED BLOOD CELL COUNT(AUTO) 2.42 MIL/uL (4.50-6.20); RED CELL DISTRIBUTION WIDTH 15.3 % (11.0-15.5)
[2021-04-02 10:51] LABS: CREATININE 0.9 mg/dL (0.5-1.5); POTASSIUM 3.8 mmol/L (3.5-5.1)
[2021-04-02 10:55] LABS: HEMATOCRIT 20.6 % (42-54)
[2021-04-02] MEDS: PSYLLIUM SEED 1 EACH PACKET PO SCH (12:00)
[2021-04-02] MEDS: HYDROCODONE/ACETAMINOPHEN 5/325 MG TAB PO PRN (19:32)
[2021-04-02] MEDS: CALCIUM CARBONATE 500 MG TABLET PO PRN (22:45)
[2021-04-02] MEDS: FERROUS FUMARATE 324 MG TABLET PO PRN (22:45)
[2021-04-03] MEDS: ACETAMINOPHEN 500 MG TABLET PO SCH ×4 (02:16→19:27)
[2021-04-03 04:00] VITALS: BP 138/66
[2021-04-03] MEDS: HYDROMORPHONE 2 MG VIAL (2MG/ML) IVP PRN ×2 (04:11→22:08)
[2021-04-03 05:09] LABS: MEAN CORPUSCULAR HEMOGLOBIN 28.8 pg (27.0-33.0); MEAN CORPUSCULAR HGB CONC 33.3 g/dL (32.0-36.0); MEAN CORPUSCULAR VOLUME 86.5 fL (79-99); NUCLEATED RED BLOOD CELLS 4.4 % (0.0-0.19); RED BLOOD CELL COUNT(AUTO) 2.29 MIL/uL (4.50-6.20); WHITE BLOOD COUNT (AUTO) 18.5 K/uL (4.8-10.8)
[2021-04-03 05:14] LABS: HEMATOCRIT 19.8 % (42-54)
[2021-04-03 05:16] LABS: CREATININE 0.9 mg/dL (0.5-1.5); MAGNESIUM 1.8 mg/dL (1.80-2.40); POTASSIUM 4.1 mmol/L (3.5-5.1)
[2021-04-03] MEDS: MAGNESIUM 2GM PREMIX 50ML 50 ML IV SCH (05:33)
[2021-04-03] MEDS: GLIMEPIRIDE 2 MG TABLET PO SCH (06:36)
[2021-04-03] MEDS: INSULIN R PO SS1 SQ SCH ×5 (06:37→22:07)
[2021-04-03 07:30] VITALS: BP 127/47
[2021-04-03] MEDS: GABAPENTIN 300 MG CAPSULE PO SCH ×3 (08:17→22:06)
[2021-04-03] MEDS: DULOXETINE HCL 30 MG CAP PO SCH (08:17)
[2021-04-03] MEDS: SERTRALINE HCL 50 MG TABLET PO SCH (08:17)
[2021-04-03] MEDS: ALPRAZOLAM 0.5 MG TABLET PO SCH ×2 (08:17→22:05)
[2021-04-03] MEDS: GEMFIBROZIL 600 MG TABLET PO SCH ×2 (08:17→22:06)
[2021-04-03] MEDS: HYDROCODONE/ACETAMINOPHEN 5/325 MG TAB PO PRN (08:18)
[2021-04-03] MEDS: POLYETHYLENE GLYCOL 3350 17 GM POWD.PACK PO SCH (08:18)
[2021-04-03] MEDS ORDERED: HYDROMORPHONE 0.5 MG SYG (0.5MG/0.5ML) ONE (09:10)
[2021-04-03 11:00] VITALS: BP 138/65
[2021-04-03] MEDS: CALCIUM CARBONATE 500 MG TABLET PO PRN (12:10)
[2021-04-03] MEDS: PSYLLIUM SEED 1 EACH PACKET PO SCH (12:10)
[2021-04-03 12:48] LABS: HEMATOCRIT 26.2 % (42-54)
[2021-04-03 16:00] VITALS: BP 146/60
[2021-04-03 20:00] VITALS: BP 164/72
[2021-04-04] VITALS (7 sets, daily range): BP systolic 122–159; BP diastolic 68–86
[2021-04-04] MEDS: ACETAMINOPHEN 500 MG TABLET PO SCH (01:56)
[2021-04-04] MEDS: GLIMEPIRIDE 2 MG TABLET PO SCH (06:31)
[2021-04-04] MEDS: INSULIN R PO SS1 SQ SCH ×4 (06:32→21:08)
[2021-04-04] MEDS: HYDROMORPHONE 2 MG VIAL (2MG/ML) IVP PRN (07:41)
[2021-04-04] MEDS: SERTRALINE HCL 50 MG TABLET PO SCH (09:02)
[2021-04-04] MEDS: POLYETHYLENE GLYCOL 3350 17 GM POWD.PACK PO SCH (09:02)
[2021-04-04] MEDS: GEMFIBROZIL 600 MG TABLET PO SCH ×2 (09:02→21:03)
[2021-04-04] MEDS: DULOXETINE HCL 30 MG CAP PO SCH (09:02)
[2021-04-04] MEDS: GABAPENTIN 300 MG CAPSULE PO SCH ×3 (09:03→21:03)
[2021-04-04] MEDS: ALPRAZOLAM 0.5 MG TABLET PO SCH ×2 (09:03→21:04)
[2021-04-04] MEDS: PSYLLIUM SEED 1 EACH PACKET PO SCH (11:16)
[2021-04-04] MEDS: HYDROCODONE/ACETAMINOPHEN 5/325 MG TAB PO PRN ×3 (12:23→23:02)
[2021-04-05] MEDS: ACETAMINOPHEN 500 MG TABLET PO SCH ×3 (01:06→18:20)
[2021-04-05 03:47] VITALS: BP 146/82
[2021-04-05] MEDS: HYDROCODONE/ACETAMINOPHEN 5/325 MG TAB PO PRN ×4 (05:17→20:52)
[2021-04-05] MEDS: GLIMEPIRIDE 2 MG TABLET PO SCH (06:25)
[2021-04-05] MEDS: INSULIN R PO SS1 SQ SCH ×4 (06:29→20:56)
[2021-04-05] MEDS: DULOXETINE HCL 30 MG CAP PO SCH (08:46)
[2021-04-05] MEDS: ALPRAZOLAM 0.25 MG TABLET PO SCH ×2 (08:46→20:51)
[2021-04-05] MEDS: GEMFIBROZIL 600 MG TABLET PO SCH ×2 (08:46→20:52)
[2021-04-05] MEDS: SERTRALINE HCL 50 MG TABLET PO SCH (08:46)
[2021-04-05] MEDS: GABAPENTIN 300 MG CAPSULE PO SCH ×3 (08:46→20:51)
[2021-04-05] MEDS: POLYETHYLENE GLYCOL 3350 17 GM POWD.PACK PO SCH (08:46)
[2021-04-05] MEDS: FERROUS SULFATE 325 MG TABLET.DR PO SCH (08:48)
[2021-04-05 09:06] VITALS: BP 132/75
[2021-04-05] MEDS: PSYLLIUM SEED 1 EACH PACKET PO SCH (12:02)
[2021-04-05 14:03] VITALS: BP 117/74
[2021-04-05 18:41] VITALS: BP 132/70
[2021-04-05 20:00] VITALS: BP 125/75
[2021-04-06] VITALS (7 sets, daily range): BP systolic 119–161; BP diastolic 60–82
[2021-04-06] MEDS: ACETAMINOPHEN 500 MG TABLET PO SCH ×3 (01:45→17:15)
[2021-04-06] MEDS: HYDROCODONE/ACETAMINOPHEN 5/325 MG TAB PO PRN ×3 (04:47→21:11)
[2021-04-06 04:53] LABS: HEMATOCRIT 31.3 % (42-54); MEAN CORPUSCULAR HEMOGLOBIN 28.2 pg (27.0-33.0); MEAN CORPUSCULAR HGB CONC 31.6 g/dL (32.0-36.0); MEAN CORPUSCULAR VOLUME 89.2 fL (79-99); NUCLEATED RED BLOOD CELLS 0.6 % (0.0-0.19); RED BLOOD CELL COUNT(AUTO) 3.51 MIL/uL (4.50-6.20); RED CELL DISTRIBUTION WIDTH 17.4 % (11.0-15.5); WHITE BLOOD COUNT (AUTO) 8.8 K/uL (4.8-10.8)
[2021-04-06 05:01] LABS: CREATININE 0.8 mg/dL (0.5-1.5); MAGNESIUM 1.8 mg/dL (1.80-2.40)
[2021-04-06] MEDS: MAGNESIUM 2GM PREMIX 50ML 50 ML IV SCH (05:37)
[2021-04-06] MEDS: INSULIN R PO SS1 SQ SCH ×4 (06:13→21:50)
[2021-04-06] MEDS: GLIMEPIRIDE 2 MG TABLET PO SCH (06:40)
[2021-04-06] MEDS: DULOXETINE HCL 30 MG CAP PO SCH (09:55)
[2021-04-06] MEDS: GABAPENTIN 300 MG CAPSULE PO SCH ×3 (09:55→21:11)
[2021-04-06] MEDS: ALPRAZOLAM 0.25 MG TABLET PO SCH ×2 (09:55→21:10)
[2021-04-06] MEDS: SERTRALINE HCL 50 MG TABLET PO SCH (09:55)
[2021-04-06] MEDS: FERROUS SULFATE 325 MG TABLET.DR PO SCH (09:55)
[2021-04-06] MEDS: POLYETHYLENE GLYCOL 3350 17 GM POWD.PACK PO SCH (09:55)
[2021-04-06] MEDS: GEMFIBROZIL 600 MG TABLET PO SCH ×2 (09:56→21:10)
[2021-04-06] MEDS: PSYLLIUM SEED 1 EACH PACKET PO SCH (12:06)
[2021-04-07] MEDS: ACETAMINOPHEN 500 MG TABLET PO SCH ×4 (01:54→21:18)
[2021-04-07 03:46] VITALS: BP 144/78
[2021-04-07] MEDS: GLIMEPIRIDE 2 MG TABLET PO SCH (06:22)
[2021-04-07] MEDS: INSULIN R PO SS1 SQ SCH ×4 (06:23→20:35)
[2021-04-07 08:05] VITALS: BP 137/78
[2021-04-07] MEDS: ALPRAZOLAM 0.25 MG TABLET PO SCH ×2 (09:41→20:30)
[2021-04-07] MEDS: POLYETHYLENE GLYCOL 3350 17 GM POWD.PACK PO SCH (09:41)
[2021-04-07] MEDS: DULOXETINE HCL 30 MG CAP PO SCH (09:42)
[2021-04-07] MEDS: GABAPENTIN 300 MG CAPSULE PO SCH ×3 (09:42→20:30)
[2021-04-07] MEDS: SERTRALINE HCL 50 MG TABLET PO SCH (09:42)
[2021-04-07] MEDS: HYDROCODONE/ACETAMINOPHEN 5/325 MG TAB PO PRN ×3 (09:42→20:30)
[2021-04-07] MEDS: GEMFIBROZIL 600 MG TABLET PO SCH ×2 (09:42→20:30)
[2021-04-07] MEDS: FERROUS SULFATE 325 MG TABLET.DR PO SCH (09:44)
[2021-04-07 11:22] VITALS: BP 112/73
[2021-04-07] MEDS: PSYLLIUM SEED 1 EACH PACKET PO SCH (12:08)
[2021-04-07 16:19] VITALS: BP 123/65
[2021-04-07] MEDS: TRAMADOL HCL 50 MG TABLET PO PRN (16:27)
[2021-04-07 19:33] VITALS: BP 116/64
[2021-04-07 23:40] VITALS: BP 127/74
[2021-04-08] MEDS: HYDROCODONE/ACETAMINOPHEN 5/325 MG TAB PO PRN ×4 (03:26→21:10)
[2021-04-08 03:44] VITALS: BP 150/75
[2021-04-08 05:46] LABS: HEMATOCRIT 32.2 % (42-54); MEAN CORPUSCULAR HEMOGLOBIN 28.7 pg (27.0-33.0); MEAN CORPUSCULAR HGB CONC 31.1 g/dL (32.0-36.0); MEAN CORPUSCULAR VOLUME 92.3 fL (79-99); RED BLOOD CELL COUNT(AUTO) 3.49 MIL/uL (4.50-6.20); RED CELL DISTRIBUTION WIDTH 16.7 % (11.0-15.5)
[2021-04-08 05:59] LABS: CREATININE 1.1 mg/dL (0.5-1.5); MAGNESIUM 1.8 mg/dL (1.80-2.40); POTASSIUM 4.2 mmol/L (3.5-5.1)
[2021-04-08] MEDS: GLIMEPIRIDE 2 MG TABLET PO SCH (06:21)
[2021-04-08] MEDS: MAGNESIUM 2GM PREMIX 50ML 50 ML IV SCH (06:22)
[2021-04-08] MEDS: INSULIN R PO SS1 SQ SCH ×4 (06:26→20:14)
[2021-04-08] MEDS: ALPRAZOLAM 0.25 MG TABLET PO SCH ×2 (08:24→20:11)
[2021-04-08] MEDS: GEMFIBROZIL 600 MG TABLET PO SCH ×2 (08:24→20:11)
[2021-04-08] MEDS: SERTRALINE HCL 50 MG TABLET PO SCH (08:24)
[2021-04-08] MEDS: DULOXETINE HCL 30 MG CAP PO SCH (08:25)
[2021-04-08] MEDS: FERROUS SULFATE 325 MG TABLET.DR PO SCH (08:25)
[2021-04-08] MEDS: GABAPENTIN 300 MG CAPSULE PO SCH ×3 (08:25→20:11)
[2021-04-08] MEDS: POLYETHYLENE GLYCOL 3350 17 GM POWD.PACK PO SCH (08:26)
[2021-04-08] MEDS: ACETAMINOPHEN 500 MG TABLET PO SCH ×2 (09:45→17:45)
[2021-04-08 09:57] VITALS: BP 129/76
[2021-04-08] MEDS: PSYLLIUM SEED 1 EACH PACKET PO SCH (11:57)
[2021-04-08 12:33] VITALS: BP 126/71
[2021-04-08] MEDS: TRAMADOL HCL 50 MG TABLET PO PRN (13:38)
[2021-04-08 16:35] VITALS: BP 93/45
[2021-04-08 19:35] VITALS: BP 135/91
[2021-04-09] VITALS (7 sets, daily range): BP systolic 124–153; BP diastolic 52–86
[2021-04-09] MEDS: ACETAMINOPHEN 500 MG TABLET PO SCH ×3 (01:45→16:48)
[2021-04-09] MEDS: HYDROCODONE/ACETAMINOPHEN 5/325 MG TAB PO PRN ×4 (03:34→22:53)
[2021-04-09] MEDS: GLIMEPIRIDE 2 MG TABLET PO SCH (06:32)
[2021-04-09] MEDS: INSULIN R PO SS1 SQ SCH ×4 (06:33→19:52)
[2021-04-09] MEDS: DULOXETINE HCL 30 MG CAP PO SCH (08:19)
[2021-04-09] MEDS: ALPRAZOLAM 0.25 MG TABLET PO SCH ×2 (08:20→20:02)
[2021-04-09] MEDS: GEMFIBROZIL 600 MG TABLET PO SCH ×2 (08:20→20:02)
[2021-04-09] MEDS: SERTRALINE HCL 50 MG TABLET PO SCH (08:20)
[2021-04-09] MEDS: FERROUS SULFATE 325 MG TABLET.DR PO SCH (08:20)
[2021-04-09] MEDS: GABAPENTIN 300 MG CAPSULE PO SCH ×3 (08:21→20:02)
[2021-04-09] MEDS: POLYETHYLENE GLYCOL 3350 17 GM POWD.PACK PO SCH (09:00)
[2021-04-09] MEDS: PSYLLIUM SEED 1 EACH PACKET PO SCH (12:00)
[2021-04-10] MEDS: ACETAMINOPHEN 500 MG TABLET PO SCH ×3 (01:10→23:02)
[2021-04-10 03:56] VITALS: BP 147/82
[2021-04-10] MEDS: HYDROCODONE/ACETAMINOPHEN 5/325 MG TAB PO PRN (06:22)
[2021-04-10] MEDS: GLIMEPIRIDE 2 MG TABLET PO SCH (06:23)
[2021-04-10] MEDS: INSULIN R PO SS1 SQ SCH ×4 (06:26→21:24)
[2021-04-10 08:04] VITALS: BP 152/85
[2021-04-10] MEDS: GABAPENTIN 300 MG CAPSULE PO SCH ×3 (10:05→21:20)
[2021-04-10] MEDS: SERTRALINE HCL 50 MG TABLET PO SCH (10:05)
[2021-04-10] MEDS: GEMFIBROZIL 600 MG TABLET PO SCH ×2 (10:05→21:21)
[2021-04-10] MEDS: DULOXETINE HCL 30 MG CAP PO SCH (10:05)
[2021-04-10] MEDS: POLYETHYLENE GLYCOL 3350 17 GM POWD.PACK PO SCH (10:06)
[2021-04-10] MEDS: ALPRAZOLAM 0.25 MG TABLET PO SCH ×2 (10:06→21:18)
[2021-04-10] MEDS: FERROUS SULFATE 325 MG TABLET.DR PO SCH (10:14)
[2021-04-10 11:43] VITALS: BP 173/82
[2021-04-10] MEDS: PSYLLIUM SEED 1 EACH PACKET PO SCH (12:37)
[2021-04-10] MEDS: TRAMADOL HCL 50 MG TABLET PO PRN ×2 (13:58→18:41)
[2021-04-10 17:06] VITALS: BP 131/79
[2021-04-10 20:00] VITALS: BP 160/88
[2021-04-11] VITALS: BP 120/73
[2021-04-11] MEDS: TRAMADOL HCL 50 MG TABLET PO PRN (00:35)
== END 2021-04-11 00:53 | DRG 240 ==
LOC: EDH 23:55 → EDHIP 03-19 04:10 → EEVIPCON 03-19 04:10 → 3CH 03-20 15:03
PROVIDERS: ADMIT Internal Medicine Infectious Disease; ATTEND Internal Medicine Infectious Disease
PROC: 0Y6J0Z1 Detachment at Left Lower Leg, High, Open Approach (ICD-10-PCS; principal; 2021-03-22)
PROC: 0Y6C0Z1 Detachment at Right Upper Leg, High, Open Approach (ICD-10-PCS; 2021-03-30)
PROC: 30233N1 Transfusion of Nonautologous Red Blood Cells into Peripheral Vein, Percutaneous Approach (ICD-10-PCS; 2021-03-31)
DX: E11.52 Type 2 diabetes mellitus with diabetic peripheral angiopathy with gangrene (principal); T84.53XA Infection and inflammatory reaction due to internal right knee prosthesis, initial encounter; D62 Acute posthemorrhagic anemia; I82.411 Acute embolism and thrombosis of right femoral vein; I74.5 Embolism and thrombosis of iliac artery; I82.621 Acute embolism and thrombosis of deep veins of right upper extremity; I10 Essential (primary) hypertension; G89.29 Other chronic pain; S80.11XA Contusion of right lower leg, initial encounter; I25.10 Atherosclerotic heart disease of native coronary artery without angina pectoris; D72.829 Elevated white blood cell count, unspecified; E66.01 Morbid (severe) obesity due to excess calories; M19.90 Unspecified osteoarthritis, unspecified site; S70.11XA Contusion of right thigh, initial encounter; S80.12XA Contusion of left lower leg, initial encounter; Y83.1 Surgical operation with implant of artificial internal device as the cause of abnormal reaction of the patient, or of later complication, without mention of misadventure at the time of the procedure; Z79.01 Long term (current) use of anticoagulants; Z79.4 Long term (current) use of insulin; Z83.3 Family history of diabetes mellitus; Z98.1 Arthrodesis status; R53.81 Other malaise; Z89.411 Acquired absence of right great toe; Z68.34 Body mass index [BMI] 34.0-34.9, adult
CPT/HCPCS: 36415; 36430; 73551; 73562; 80048; 80053; 80202; 81001; 82550; 82728; 82948; 83036; 83540; 83550; 83605; 83735; 84100; 85014; 85018; 85025; 85027; 85610; 85730; 86850; 86900; 86901; 86923; 87040; 93971; 97039; A4344; G0378; J0171; J0690; J1100; J1170; J1650; J1815; J1885; J2001; J2250; J2270; J2795; J3010; J3370; J3475; J3490; J7030; J7040; J7120; P9016; P9045; Q0162

== ENCOUNTER 2021-05-08 14:35 | Emergency (ER) | payer MEDICARE, OTHER ==
[~2021-05-08] VITALS: Ht 180.3 cm; Wt 108.9 kg
[~2021-05-08 14:35] MED LIST changes: +ALPR0.5T PO; +GABA600T10 PO; +SERT-440 PO; +SIMV-43 PO
[2021-05-08 14:41] VITALS: BP 169/79
[2021-05-08] MEDS ORDERED: ACETAMINOPHEN 325 MG TAB ONE (17:51)
[2021-05-08] MEDS ORDERED: ACETAMINOPHEN 650MG ER TAB PO ONE (18:00)
[2021-05-08 18:02] VITALS: BP 158/72
[2021-05-08 20:11] VITALS: BP 160/74
== END 2021-05-08 20:13 | disposition home or self-care (01) ==
LOC: EDH 14:35
DX: T81.30XA Disruption of wound, unspecified, initial encounter (principal); I10 Essential (primary) hypertension; E10.9 Type 1 diabetes mellitus without complications; E78.00 Pure hypercholesterolemia, unspecified; Z79.82 Long term (current) use of aspirin; Z79.899 Other long term (current) drug therapy; Z79.4 Long term (current) use of insulin; Z88.8 Allergy status to other drugs, medicaments and biological substances; Y92.89 Other specified places as the place of occurrence of the external cause

== ENCOUNTER 2021-07-02 18:10 | Inpatient (IN) | payer MEDICARE ==
[~2021-07-02] VITALS: Ht 180.3 cm; Wt 118.0 kg
[~2021-07-02 18:10] MED LIST changes: +ACET-66; -ALPR0.5T PO; +AMLO5TAB4 PO; +CARV6.2579 PO; +CHOL2000 PO; +DULO30CA2 PO; -DULO30CA52 PO; +FERS325 PO; -GLIM2TAB30 PO; +HYDR-4060 PO; -INSU100C14 SQ; -INSU100V12 SQ; +INSU200I SQ; +INSU3INS3 SQ; +LOSA100T2 PO; -METO-408 PO; +ONDA4TAB4 PO; +PEN1DIS.48 MC; +SENN-183 PO; -SERT-440 PO; -SIMV-43 PO; +TRAM50TA4 PO; -VALS160T29 PO
[2021-07-02 19:02] LABS: HEMATOCRIT 33.2 % (42-54); MEAN CORPUSCULAR HEMOGLOBIN 28.6 pg (27.0-33.0); MEAN CORPUSCULAR HGB CONC 33.4 g/dL (32.0-36.0); MEAN CORPUSCULAR VOLUME 85.6 fL (79-99); PLATELET COUNT (AUTO) 420 K/uL (130-400); RED BLOOD CELL COUNT(AUTO) 3.88 MIL/uL (4.50-6.20); RED CELL DISTRIBUTION WIDTH 13.8 % (11.0-15.5); WHITE BLOOD COUNT (AUTO) 19.2 K/uL (4.8-10.8)
[2021-07-02 19:20] LABS: CREATININE 1.8 mg/dL (0.5-1.5); POTASSIUM 3.7 mmol/L (3.5-5.1)
[2021-07-02 19:25] LABS: ALBUMIN 3.2 g/dL (3.5-5.0); BILIRUBIN,TOTAL 0.5 mg/dL (0.2-1.0); CRP QUANTITATIVE 102.6 mg/L (0.00-9.0); TOTAL PROTEIN, SERUM 8.4 g/dL (6.0-8.3)
[2021-07-02 19:55] LABS: EOSINOPHILS % (MANUAL) 2 % (1-6); LYMPHOCYTES % (MANUAL) 15 % (22-44); MAN.DIFF COMMENT-IMPRESSION MANUAL DIFFERENTIAL; MONOCYTES % (MANUAL) 4 % (2-9); PLATELET MORPHOLOGY COMMENT ADEQUATE; SEGMENTED NEUTROPHILS % 79 % (40-70)
[2021-07-02 20:00] LABS: INR 1.03 (0.85-1.15); PROTHROMBIN TIME 11.2 SEC (9.6-11.6)
[2021-07-02 20:01] LABS: PARTIAL THROMBOPLASTIN TIME 29.1 SEC (26.3-35.5)
[2021-07-02] MEDS ORDERED: MORPHINE 4 MG SYG IV ONE (21:30)
[2021-07-02] MEDS ORDERED: ONDANSETRON 4MG INJ IVP ONE (21:30)
[2021-07-02] MEDS: CLINDAMYCIN IVPB 600MG/50ML 50 ML IV SCH (22:01)
[2021-07-02] MEDS ORDERED: MORPHINE 2 MG SYG IVP PRN (23:00)
[2021-07-02] MEDS ORDERED: GLUCAGON 1MG KIT 1 MG ML IM PRN (23:00)
[2021-07-02] MEDS ORDERED: DEXTROSE 50%-WATER 50 ML DISP.SYRIN IV PRN (23:00)
[2021-07-02] MEDS ORDERED: VANCOMYCIN PROTOCOL PER PHARMACY IV SCH (23:00)
[2021-07-02] MEDS ORDERED: 0.9%NACL 50ML 50 ML IV ONE (23:13)
[2021-07-02] MEDS: LACTATED RINGERS 1000ML 1,000 ML IV SCH (23:18)
[2021-07-02] MEDS: ZOSYN 3.375GM+NS 50ML 50 ML IV SCH (23:18)
[2021-07-03] VITALS (26 sets, daily range): BP systolic 91–153; BP diastolic 42–78
[2021-07-03] MEDS ORDERED: MORPHINE 2 MG SYG IVP ONE (05:00)
[2021-07-03] MEDS: CLINDAMYCIN IVPB 600MG/50ML 50 ML IV SCH ×3 (05:09→23:59)
[2021-07-03] MEDS: INSULIN HUMULIN R 100 UNIT/ML 3ML SQ SCH ×4 (06:29→21:50)
[2021-07-03] MEDS: ZOSYN 3.375GM+NS 50ML 50 ML IV SCH ×3 (06:29→23:59)
[2021-07-03] MEDS ORDERED: COMPOUND IV REFRIGERATED 1 EACH IVSOLN MISC PRN (06:30)
[2021-07-03 06:32] LABS: HEMATOCRIT 27.9 % (42-54); MEAN CORPUSCULAR HEMOGLOBIN 28.3 pg (27.0-33.0); MEAN CORPUSCULAR HGB CONC 32.6 g/dL (32.0-36.0); MEAN CORPUSCULAR VOLUME 86.9 fL (79-99); RED BLOOD CELL COUNT(AUTO) 3.21 MIL/uL (4.50-6.20); RED CELL DISTRIBUTION WIDTH 13.9 % (11.0-15.5); WHITE BLOOD COUNT (AUTO) 15.2 K/uL (4.8-10.8)
[2021-07-03 06:54] LABS: ALBUMIN 2.6 g/dL (3.5-5.0); BILIRUBIN,TOTAL 0.5 mg/dL (0.2-1.0); CREATININE 1.6 mg/dL (0.5-1.5); POTASSIUM 3.6 mmol/L (3.5-5.1); TOTAL PROTEIN, SERUM 7.1 g/dL (6.0-8.3)
[2021-07-03] MEDS ORDERED: HYDROMORPHONE 0.5 MG SYG (0.5MG/0.5ML) IVP PRN (09:00)
[2021-07-03] MEDS: VANCOMYCIN 1.25GM/NS 250ML IVPB SCH ×4 (09:40→21:38)
[2021-07-03] MEDS: FAMOTIDINE 20MG VIAL IV SCH ×2 (09:40→21:33)
[2021-07-03] MEDS: KETOROLAC 30MG VIAL (30MG/ML) IV PRN (09:42)
[2021-07-03] MEDS: HYDROMORPHONE 1 MG INJ IVP PRN ×2 (09:44→20:00)
[2021-07-03] MEDS: LACTATED RINGERS 1000ML 1,000 ML IV SCH (11:30)
[2021-07-03] MEDS ORDERED: DEXAMETHASONE SOD PHOSPHATE 10MG/ML 1ML VIAL ONE (15:08)
[2021-07-03] MEDS ORDERED: PROPOFOL 10 MG/ML 20ML VIAL IV ONE (15:08)
[2021-07-03] MEDS ORDERED: NEOSTIGMINE 5MG/5ML SYR IV ONE (15:08)
[2021-07-03] MEDS ORDERED: LIDOCAINE PF 100MG/5ML (2%) SYRINGE 5ML ONE (15:08)
[2021-07-03] MEDS ORDERED: GLYCOPYRROLATE 1 MG/5 ML SYRINGE ONE (15:08)
[2021-07-03] MEDS ORDERED: SUCCINYLCHOLINE 200MG/10ML SYR ONE (15:08)
[2021-07-03] MEDS ORDERED: MIDAZOLAM HCL 1 MG/ML 2ML VIAL ONE (15:08)
[2021-07-03] MEDS ORDERED: ONDANSETRON 4MG INJ ONE (15:09)
[2021-07-03] MEDS ORDERED: ROCURONIUM 10MG/1ML SYR 10 MG/ML ML ONE (15:09)
[2021-07-03] MEDS ORDERED: FENTANYL CITRATE PF 50 MCG/1 ML 2ML VIAL ONE (15:09)
[2021-07-03] MEDS ORDERED: ROPIVACAINE 0.5% 5MG/ML 30ML IJ ONE (15:20)
[2021-07-03] MEDS ORDERED: EPHEDRINE SULFATE 50 MG/ML AMPULE ONE (15:23)
[2021-07-03] MEDS ORDERED: VANCOMYCIN 1G VIAL ONE (15:25)
[2021-07-03] MEDS ORDERED: DiphenhydrAMINE HCL 50 MG/ML VIAL IVP PRN (17:00)
[2021-07-03] MEDS ORDERED: CALCIUM CARB 500MG PO PRN (17:00)
[2021-07-03] MEDS ORDERED: FERROUS FUMARATE 324 MG TABLET PO PRN (17:00)
[2021-07-03] MEDS ORDERED: DIPHENHYDRAMINE HCL 25 MG CAPSULE PO PRN (17:00)
[2021-07-03] MEDS ORDERED: POTASSIUM CHLORIDE 10% ELIXIR 20 MEQ/15 ML UDCUP PO PRN (17:00)
[2021-07-03] MEDS ORDERED: POTASSIUM CHLORIDE 20MEQ/100ML 100 ML IV PRN (17:00)
[2021-07-03] MEDS ORDERED: HYDROCODONE/ACETAMINOPHEN 5/325 MG TAB PO PRN (17:00)
[2021-07-03] MEDS: 0.9%NACL 1000ML 1,000 ML IV SCH (17:37)
[2021-07-04] VITALS (27 sets, daily range): BP systolic 84–158; BP diastolic 39–85
[2021-07-04] MEDS: HYDROMORPHONE 1 MG INJ IVP PRN ×4 (00:14→19:53)
[2021-07-04] MEDS: ACETAMINOPHEN 500 MG TABLET PO SCH ×3 (01:00→17:45)
[2021-07-04] MEDS: 0.9%NACL 1000ML 1,000 ML IV SCH ×4 (04:51→15:00)
[2021-07-04 05:14] LABS: HEMATOCRIT 21.2 % (42-54); MEAN CORPUSCULAR HEMOGLOBIN 27.7 pg (27.0-33.0); MEAN CORPUSCULAR HGB CONC 32.5 g/dL (32.0-36.0); MEAN CORPUSCULAR VOLUME 85.1 fL (79-99); RED BLOOD CELL COUNT(AUTO) 2.49 MIL/uL (4.50-6.20); RED CELL DISTRIBUTION WIDTH 13.7 % (11.0-15.5); WHITE BLOOD COUNT (AUTO) 19.6 K/uL (4.8-10.8)
[2021-07-04 05:23] LABS: CREATININE 1.3 mg/dL (0.5-1.5); POTASSIUM 4.8 mmol/L (3.5-5.1)
[2021-07-04] MEDS: INSULIN HUMULIN R 100 UNIT/ML 3ML SQ SCH ×4 (06:22→21:55)
[2021-07-04] MEDS ORDERED: 0.9% NACL 250ML 250 ML ONE ×2 (06:25→22:19)
[2021-07-04] MEDS: KETOROLAC 30MG VIAL (30MG/ML) IV PRN (06:42)
[2021-07-04] MEDS: FAMOTIDINE 20MG VIAL IV SCH ×2 (08:31→21:52)
[2021-07-04] MEDS: ZOSYN 3.375GM+NS 50ML 50 ML IV SCH ×2 (08:31→17:45)
[2021-07-04] MEDS: CLINDAMYCIN IVPB 600MG/50ML 50 ML IV SCH ×2 (08:31→17:45)
[2021-07-04] MEDS: POLYETHYLENE GLYCOL 3350 17 GM POWD.PACK PO SCH (09:00)
[2021-07-04] MEDS: VANCOMYCIN 1.25GM/NS 250ML IVPB SCH ×4 (09:00→21:53)
[2021-07-04] MEDS: PSYLLIUM SEED 1 EACH PACKET PO SCH (11:32)
[2021-07-04] MEDS: LACTATED RINGERS 1000ML 1,000 ML IV SCH ×2 (12:30)
[2021-07-04] MEDS ORDERED: SUCCINYLCHOLINE 200MG/10ML SYR ONE (13:08)
[2021-07-04] MEDS ORDERED: MIDAZOLAM HCL 1 MG/ML 2ML VIAL ONE ×2 (13:08→13:12)
[2021-07-04] MEDS ORDERED: LIDOCAINE HCL MPF 1% 5ML VIAL ONE (13:08)
[2021-07-04] MEDS ORDERED: PROPOFOL 10 MG/ML 20ML VIAL IV ONE (13:09)
[2021-07-04] MEDS ORDERED: ROCURONIUM 10MG/1ML SYR 10 MG/ML ML ONE (13:09)
[2021-07-04] MEDS ORDERED: FENTANYL CITRATE PF 50 MCG/1 ML 2ML VIAL ONE (13:09)
[2021-07-04] MEDS ORDERED: ROPIVACAINE 0.5% 5MG/ML 30ML IJ ONE (13:10)
[2021-07-04] MEDS ORDERED: KETAMINE 50MG/ML SYRINGE 50 MG/ML DISP.SYRIN IV ONE (13:11)
[2021-07-04] MEDS ORDERED: PROPOFOL 1000 MG/100 ML 100 ML IV ONE (13:25)
[2021-07-04] MEDS ORDERED: TRANEXAMIC ACID 1000MG/10ML ONE (13:49)
[2021-07-04] MEDS ORDERED: ANTITHROMBIN III 500 UNIT VIAL IV ONE (14:00)
[2021-07-04] MEDS ORDERED: ALBUMIN (HUMAN) 5% 250 ML IV ONE (14:18)
[2021-07-04] MEDS ORDERED: POTASSIUM CHLORIDE 20MEQ/100ML 100 ML IV PRN (15:00)
[2021-07-04] MEDS ORDERED: MEPERIDINE-PF 25 MG/ML SYG ONE (15:18)
[2021-07-04 20:15] LABS: HEMATOCRIT 17.5 % (42-54)
[2021-07-05] MEDS: CLINDAMYCIN IVPB 600MG/50ML 50 ML IV SCH ×2 (00:02→08:05)
[2021-07-05] MEDS: ZOSYN 3.375GM+NS 50ML 50 ML IV SCH ×3 (00:02→16:13)
[2021-07-05] MEDS: HYDROMORPHONE 1 MG INJ IVP PRN ×6 (00:24→20:26)
[2021-07-05] MEDS: ACETAMINOPHEN 500 MG TABLET PO SCH ×3 (01:00→16:13)
[2021-07-05] MEDS: LACTATED RINGERS 1000ML 1,000 ML IV SCH ×2 (01:00→14:20)
[2021-07-05 04:00] VITALS: BP 137/43
[2021-07-05] MEDS: 0.9%NACL 1000ML 1,000 ML IV SCH ×2 (04:06→11:00)
[2021-07-05 05:00] LABS: HEMATOCRIT 18.8 % (42-54)
[2021-07-05] MEDS ORDERED: 0.9% NACL 250ML 250 ML ONE (05:23)
[2021-07-05] MEDS: INSULIN HUMULIN R 100 UNIT/ML 3ML SQ SCH ×4 (06:51→20:39)
[2021-07-05 08:05] VITALS: BP 142/72
[2021-07-05] MEDS: POLYETHYLENE GLYCOL 3350 17 GM POWD.PACK PO SCH (08:06)
[2021-07-05] MEDS: FAMOTIDINE 20MG VIAL IV SCH ×2 (08:06→20:25)
[2021-07-05] MEDS: VANCOMYCIN 1.25GM/NS 250ML IVPB SCH ×4 (09:00→20:40)
[2021-07-05 12:00] VITALS: BP 143/65
[2021-07-05] MEDS: PSYLLIUM SEED 1 EACH PACKET PO SCH (12:15)
[2021-07-05 16:08] VITALS: BP 167/65
[2021-07-05 20:00] VITALS: BP 158/60
[2021-07-05] MEDS: HYDROCODONE/ACETAMINOPHEN 5/325 MG TAB PO PRN (23:18)
[2021-07-06] VITALS: BP 156/59
[2021-07-06] MEDS: ZOSYN 3.375GM+NS 50ML 50 ML IV SCH ×2 (00:24→08:30)
[2021-07-06] MEDS: ACETAMINOPHEN 500 MG TABLET PO SCH ×3 (00:48→16:36)
[2021-07-06] MEDS: HYDROMORPHONE 1 MG INJ IVP PRN ×6 (00:51→23:01)
[2021-07-06] MEDS: LACTATED RINGERS 1000ML 1,000 ML IV SCH ×2 (02:22→14:37)
[2021-07-06 04:00] VITALS: BP 156/79
[2021-07-06] MEDS: INSULIN HUMULIN R 100 UNIT/ML 3ML SQ SCH ×4 (07:03→21:22)
[2021-07-06 08:00] VITALS: BP 162/76
[2021-07-06] MEDS: FAMOTIDINE 20MG VIAL IV SCH ×2 (08:30→20:55)
[2021-07-06] MEDS: POLYETHYLENE GLYCOL 3350 17 GM POWD.PACK PO SCH (08:30)
[2021-07-06 09:58] LABS: BASOPHILS % (AUTO) 0.3 % (0.0-5.0); EOSINOPHILS % (AUTO) 1.4 % (0.0-8.0); HEMATOCRIT 22.5 % (42-54); LYMPHOCYTES % (AUTO) 10.7 % (21.0-51.0); MEAN CORPUSCULAR HEMOGLOBIN 29.4 pg (27.0-33.0); MEAN CORPUSCULAR HGB CONC 34.2 g/dL (32.0-36.0); MEAN CORPUSCULAR VOLUME 85.9 fL (79-99); MONOCYTES % (AUTO) 9.4 % (3.0-13.0); NUCLEATED RED BLOOD CELLS 0.2 % (0.0-0.19); PLATELET COUNT (AUTO) 322 K/uL (130-400); RED BLOOD CELL COUNT(AUTO) 2.62 MIL/uL (4.50-6.20); RED CELL DISTRIBUTION WIDTH 13.5 % (11.0-15.5); WHITE BLOOD COUNT (AUTO) 20.2 K/uL (4.8-10.8)
[2021-07-06 10:20] LABS: ALBUMIN 2.3 g/dL (3.5-5.0); BILIRUBIN,TOTAL 0.4 mg/dL (0.2-1.0); CREATININE 0.9 mg/dL (0.5-1.5); POTASSIUM 3.3 mmol/L (3.5-5.1); TOTAL PROTEIN, SERUM 6.7 g/dL (6.0-8.3)
[2021-07-06] MEDS: PSYLLIUM SEED 1 EACH PACKET PO SCH (11:53)
[2021-07-06] MEDS: HYDROCODONE/ACETAMINOPHEN 5/325 MG TAB PO PRN ×2 (11:54→20:56)
[2021-07-06 12:00] VITALS: BP 152/71
[2021-07-06] MEDS: VANCOMYCIN 1.25GM/NS 250ML IVPB SCH ×2 (13:10)
[2021-07-06] MEDS: CEFTRIAXONE 2GM VIAL IVP SCH (14:37)
[2021-07-06] MEDS: KCL 20 MEQ ERTAB PO PRN ×3 (14:45→18:37)
[2021-07-06 16:00] VITALS: BP 138/52
[2021-07-06] MEDS ORDERED: BISACODYL 10 MG SUPP.RECT RC PRN (17:00)
[2021-07-06 20:00] VITALS: BP 168/75
[2021-07-06] MEDS ORDERED: HYDROXYZINE 25 MG TABLET ONE (21:25)
[2021-07-06] MEDS ORDERED: HYDROXYZINE 25 MG TABLET PO PRN (21:30)
[2021-07-06] MEDS: BISACODYL 5 MG TABLET.DR PO PRN (23:00)
[2021-07-07] VITALS (8 sets, daily range): BP systolic 128–165; BP diastolic 50–85
[2021-07-07] MEDS: ACETAMINOPHEN 500 MG TABLET PO SCH ×3 (00:13→16:46)
[2021-07-07] MEDS ORDERED: LABETALOL 20MG VIAL IV ONE (01:30)
[2021-07-07] MEDS: LACTATED RINGERS 1000ML 1,000 ML IV SCH ×2 (03:00→15:30)
[2021-07-07] MEDS: HYDROMORPHONE 1 MG INJ IVP PRN ×4 (03:09→22:57)
[2021-07-07] MEDS: HYDROCODONE/ACETAMINOPHEN 5/325 MG TAB PO PRN (05:15)
[2021-07-07 06:02] LABS: BASOPHILS % (AUTO) 0.2 % (0.0-5.0); EOSINOPHILS % (AUTO) 1.6 % (0.0-8.0); HEMATOCRIT 23.6 % (42-54); LYMPHOCYTES % (AUTO) 12.7 % (21.0-51.0); MEAN CORPUSCULAR HEMOGLOBIN 28.8 pg (27.0-33.0); MEAN CORPUSCULAR HGB CONC 32.6 g/dL (32.0-36.0); MEAN CORPUSCULAR VOLUME 88.4 fL (79-99); MONOCYTES % (AUTO) 7.4 % (3.0-13.0); NEUTROPHILS % (AUTO) 76.5 % (40.0-77.0); NUCLEATED RED BLOOD CELLS 0.8 % (0.0-0.19); PLATELET COUNT (AUTO) 364 K/uL (130-400); RED BLOOD CELL COUNT(AUTO) 2.67 MIL/uL (4.50-6.20); RED CELL DISTRIBUTION WIDTH 13.8 % (11.0-15.5); WHITE BLOOD COUNT (AUTO) 16.4 K/uL (4.8-10.8)
[2021-07-07 06:24] LABS: ALBUMIN 2.4 g/dL (3.5-5.0); BILIRUBIN,TOTAL 0.3 mg/dL (0.2-1.0); CREATININE 0.8 mg/dL (0.5-1.5); TOTAL PROTEIN, SERUM 7.1 g/dL (6.0-8.3)
[2021-07-07] MEDS: INSULIN HUMULIN R 100 UNIT/ML 3ML SQ SCH ×4 (06:25→21:11)
[2021-07-07] MEDS: POLYETHYLENE GLYCOL 3350 17 GM POWD.PACK PO SCH (09:52)
[2021-07-07] MEDS: AMLODIPINE 5 MG TAB PO SCH (09:52)
[2021-07-07] MEDS: LOSARTAN 100 MG TABLET PO SCH (09:52)
[2021-07-07] MEDS: FAMOTIDINE 20MG VIAL IV SCH ×2 (09:53→20:00)
[2021-07-07] MEDS: CARVEDILOL 6.25 MG TABLET PO SCH ×2 (09:53→20:01)
[2021-07-07] MEDS: PSYLLIUM SEED 1 EACH PACKET PO SCH (12:28)
[2021-07-07] MEDS: CEFTRIAXONE 2GM VIAL IVP SCH (15:10)
[2021-07-07] MEDS: BISACODYL 5 MG TABLET.DR PO PRN (20:46)
[2021-07-08] MEDS: LACTATED RINGERS 1000ML 1,000 ML IV SCH ×2 (00:38→16:35)
[2021-07-08] MEDS: ACETAMINOPHEN 500 MG TABLET PO SCH ×3 (01:00→17:32)
[2021-07-08] MEDS: HYDROMORPHONE 1 MG INJ IVP PRN ×5 (02:50→20:41)
[2021-07-08 03:35] VITALS: BP 147/80
[2021-07-08] MEDS: INSULIN HUMULIN R 100 UNIT/ML 3ML SQ SCH ×4 (06:17→20:49)
[2021-07-08 08:00] VITALS: BP 120/62
[2021-07-08 08:52] LABS: BASOPHILS % (AUTO) 0.4 % (0.0-5.0); EOSINOPHILS % (AUTO) 1.8 % (0.0-8.0); HEMATOCRIT 23.6 % (42-54); LYMPHOCYTES % (AUTO) 14.2 % (21.0-51.0); MEAN CORPUSCULAR HEMOGLOBIN 28.2 pg (27.0-33.0); MEAN CORPUSCULAR HGB CONC 31.8 g/dL (32.0-36.0); MEAN CORPUSCULAR VOLUME 88.7 fL (79-99); MONOCYTES % (AUTO) 8.2 % (3.0-13.0); NEUTROPHILS % (AUTO) 74.2 % (40.0-77.0); NUCLEATED RED BLOOD CELLS 0.5 % (0.0-0.19); PLATELET COUNT (AUTO) 397 K/uL (130-400); RED BLOOD CELL COUNT(AUTO) 2.66 MIL/uL (4.50-6.20); WHITE BLOOD COUNT (AUTO) 17.1 K/uL (4.8-10.8)
[2021-07-08 09:08] LABS: ALBUMIN 2.3 g/dL (3.5-5.0); BILIRUBIN,TOTAL 0.3 mg/dL (0.2-1.0); CREATININE 0.9 mg/dL (0.5-1.5); POTASSIUM 3.9 mmol/L (3.5-5.1); TOTAL PROTEIN, SERUM 7.2 g/dL (6.0-8.3)
[2021-07-08] MEDS: POLYETHYLENE GLYCOL 3350 17 GM POWD.PACK PO SCH (09:32)
[2021-07-08] MEDS: AMLODIPINE 5 MG TAB PO SCH (09:33)
[2021-07-08] MEDS: LOSARTAN 100 MG TABLET PO SCH (09:33)
[2021-07-08] MEDS: CARVEDILOL 6.25 MG TABLET PO SCH ×2 (09:34→20:40)
[2021-07-08] MEDS: FAMOTIDINE 20MG VIAL IV SCH ×2 (09:34→20:40)
[2021-07-08] MEDS ORDERED: HYDROMORPHONE 0.5 MG SYG (0.5MG/0.5ML) IVP PRN (10:00)
[2021-07-08 12:00] VITALS: BP 145/71
[2021-07-08] MEDS: PSYLLIUM SEED 1 EACH PACKET PO SCH (12:31)
[2021-07-08] MEDS: CEFTRIAXONE 2GM VIAL IVP SCH (14:52)
[2021-07-08 16:00] VITALS: BP 127/67
[2021-07-08 19:57] VITALS: BP 120/41
[2021-07-08] MEDS ORDERED: INSULIN GLARGINE 100 UNITS/ML 10 ML VIAL SQ SCH (21:00)
[2021-07-08] MEDS: BALSAM PERU/CASTOR OIL 60 GM TUBE TP SCH (21:04)
[2021-07-08 23:51] VITALS: BP 128/64
[2021-07-09] MEDS: ACETAMINOPHEN 500 MG TABLET PO SCH ×3 (01:00→16:30)
[2021-07-09] MEDS: HYDROMORPHONE 1 MG INJ IVP PRN ×4 (01:27→15:57)
[2021-07-09 04:16] VITALS: BP 137/73
[2021-07-09] MEDS: LACTATED RINGERS 1000ML 1,000 ML IV SCH ×2 (04:40→06:09)
[2021-07-09] MEDS: INSULIN HUMULIN R 100 UNIT/ML 3ML SQ SCH (06:13)
[2021-07-09] MEDS: LOSARTAN 100 MG TABLET PO SCH (08:14)
[2021-07-09] MEDS: AMLODIPINE 5 MG TAB PO SCH (08:14)
[2021-07-09] MEDS: FAMOTIDINE 20MG VIAL IV SCH (08:14)
[2021-07-09] MEDS: CARVEDILOL 6.25 MG TABLET PO SCH (08:15)
[2021-07-09] MEDS: POLYETHYLENE GLYCOL 3350 17 GM POWD.PACK PO SCH (08:15)
[2021-07-09 08:16] VITALS: BP 143/71
[2021-07-09] MEDS: BALSAM PERU/CASTOR OIL 60 GM TUBE TP SCH ×2 (09:29→14:03)
[2021-07-09] MEDS ORDERED: MEROPENEM 1 GM VIAL IVP SCH (10:30)
[2021-07-09 10:47] LABS: BASOPHILS % (AUTO) 0.3 % (0.0-5.0); EOSINOPHILS % (AUTO) 1.6 % (0.0-8.0); HEMATOCRIT 24.3 % (42-54); LYMPHOCYTES % (AUTO) 12.6 % (21.0-51.0); MEAN CORPUSCULAR HEMOGLOBIN 29.3 pg (27.0-33.0); MEAN CORPUSCULAR HGB CONC 32.5 g/dL (32.0-36.0); MONOCYTES % (AUTO) 7.3 % (3.0-13.0); NEUTROPHILS % (AUTO) 76.9 % (40.0-77.0); NUCLEATED RED BLOOD CELLS 0.3 % (0.0-0.19); PLATELET COUNT (AUTO) 485 K/uL (130-400); RED CELL DISTRIBUTION WIDTH 13.9 % (11.0-15.5); WHITE BLOOD COUNT (AUTO) 17.5 K/uL (4.8-10.8)
[2021-07-09] MEDS ORDERED: COMPOUND IV MISC 1 EACH IVSOLN MISC PRN (11:00)
[2021-07-09] MEDS ORDERED: EPOETIN ALFA-EPBX (NON-ESRD) 10,000 UNIT/ML VIAL SQ SCH (11:00)
[2021-07-09 11:37] LABS: ALANINE AMINOTRANSFERASE 11 U/L (12-78); ALBUMIN 2.4 g/dL (3.5-5.0); ASPARTATE AMINOTRANSFERASE 12 U/L (10-37); BILIRUBIN,TOTAL 0.2 mg/dL (0.2-1.0); CARBON DIOXIDE 30 mmol/L (21-32); CHLORIDE 99 mmol/L (101-111); GLOMERULAR FILTR. RATE CALC 84 mL/min (>60); GLUCOSE,RANDOM 326 mg/dL (70-105); SODIUM SERUM 138 mmol/L (136-145); TOTAL PROTEIN, SERUM 7.5 g/dL (6.0-8.3); UREA NITROGEN, BLOOD 12 mg/dL (7-18)
[2021-07-09] MEDS: INSULIN LISPRO 100 UNIT/ML 3ML SQ SCH ×4 (11:37→16:29)
[2021-07-09 11:38] LABS: CRP QUANTITATIVE < 2.00 mg/L (0.00-9.0)
[2021-07-09 11:53] VITALS: BP 118/71
[2021-07-09 12:06] LABS: ERYTHROCYTE SEDIMENTATION RATE 149 MM/HR (0-20)
[2021-07-09] MEDS: PSYLLIUM SEED 1 EACH PACKET PO SCH (12:06)
[2021-07-09] MEDS ORDERED: ACET1TAB25 PO (12:32)
[2021-07-09] MEDS: CEFTRIAXONE 2GM VIAL IVP SCH (14:37)
[2021-07-09 16:26] VITALS: BP 116/69
[2021-07-09] MEDS ORDERED: INSULIN GLARGINE 100 UNITS/ML 10 ML VIAL SQ SCH (21:00)
[2021-07-10] MEDS ORDERED: IRON SUCROSE COMPLEX 300 MG in 0.9%NACL 50ML 50 ML IV SCH (09:00)
== END 2021-07-09 19:15 | DRG 500 ==
LOC: EDH 18:10 → EDHIP 22:32 → 3DH 07-03 02:46
PROVIDERS: ADMIT Hospitalist; ATTEND Hospitalist
PROC: 0KBQ0ZZ Excision of Right Upper Leg Muscle, Open Approach (ICD-10-PCS; 2021-07-03)
PROC: 3E0T3BZ Introduction of Anesthetic Agent into Peripheral Nerves and Plexi, Percutaneous Approach (ICD-10-PCS; 2021-07-03)
PROC: 3E0T33Z Introduction of Anti-inflammatory into Peripheral Nerves and Plexi, Percutaneous Approach (ICD-10-PCS; 2021-07-03)
PROC: 0KBQ0ZZ Excision of Right Upper Leg Muscle, Open Approach (ICD-10-PCS; principal; 2021-07-03 16:08)
PROC: 30233N1 Transfusion of Nonautologous Red Blood Cells into Peripheral Vein, Percutaneous Approach (ICD-10-PCS; 2021-07-04)
PROC: 0KBQ0ZZ Excision of Right Upper Leg Muscle, Open Approach (ICD-10-PCS; 2021-07-04 12:30)
DX: T87.43 Infection of amputation stump, right lower extremity (principal); A41.9 Sepsis, unspecified organism; D62 Acute posthemorrhagic anemia; L03.90 Cellulitis, unspecified; M86.8X8 Other osteomyelitis, other site; N17.9 Acute kidney failure, unspecified; T87.81 Dehiscence of amputation stump; E11.65 Type 2 diabetes mellitus with hyperglycemia; Z20.822 Contact with and (suspected) exposure to COVID-19; M19.90 Unspecified osteoarthritis, unspecified site; D50.9 Iron deficiency anemia, unspecified; E11.22 Type 2 diabetes mellitus with diabetic chronic kidney disease; E11.51 Type 2 diabetes mellitus with diabetic peripheral angiopathy without gangrene; E11.69 Type 2 diabetes mellitus with other specified complication; E78.00 Pure hypercholesterolemia, unspecified; E78.5 Hyperlipidemia, unspecified; G54.6 Phantom limb syndrome with pain; G89.29 Other chronic pain; I12.9 Hypertensive chronic kidney disease with stage 1 through stage 4 chronic kidney disease, or unspecified chronic kidney disease; L89.152 Pressure ulcer of sacral region, stage 2; N18.9 Chronic kidney disease, unspecified; Z96.653 Presence of artificial knee joint, bilateral; Y83.5 Amputation of limb(s) as the cause of abnormal reaction of the patient, or of later complication, without mention of misadventure at the time of the procedure; E66.9 Obesity, unspecified; Z68.36 Body mass index [BMI] 36.0-36.9, adult; Y92.89 Other specified places as the place of occurrence of the external cause; Z86.718 Personal history of other venous thrombosis and embolism; Z91.19 Patient's noncompliance with other medical treatment and regimen; Z95.5 Presence of coronary angioplasty implant and graft; Z88.8 Allergy status to other drugs, medicaments and biological substances; Z83.3 Family history of diabetes mellitus; Z82.49 Family history of ischemic heart disease and other diseases of the circulatory system
CPT/HCPCS: 36415; 36430; 71045; 73551; 80048; 80053; 80202; 82607; 82728; 82746; 82947; 82948; 83036; 83540; 83550; 83605; 84145; 84484; 85014; 85018; 85025; 85027; 85045; 85060; 85610; 85651; 85730; 86140; 86850; 86900; 86901; 86923; 87040; 87070; 87076; 87077; 87186; 87205; 87635; 97039; G0378; J0330; J0696; J1100; J1170; J1756; J1815; J1885; J2001; J2175; J2185; J2250; J2270; J2405; J2543; J2704; J2710; J2795; J3010; J3370; J3490; J7030; J7050; J7120; J7197; P9016; P9045

== ENCOUNTER 2022-03-13 05:57 | Observation (INO) | payer MEDICARE, OTHER ==
[~2022-03-13] VITALS: Ht 180.3 cm; Wt 113.4 kg
[~2022-03-13 05:57] MED LIST changes: -ACET-66; -ASPI81TA40 PO; -CHOL2000 PO; -CLOP75TA32 PO; -FERS325 PO; -GABA600T10 PO; -GEMF600T89 PO; -HYDR-4060 PO; -INSU200I SQ; -INSU3INS3 SQ; -ONDA4TAB4 PO; -PEN1DIS.48 MC; -SENN-183 PO; -TRAM50TA4 PO
[2022-03-13] MEDS ORDERED: METOCLOPRAMIDE 10 MG/2 ML VIAL IVP ONE (06:30)
[2022-03-13] MEDS ORDERED: 0.9%NACL 1000ML 1,000 ML IV ONE (06:30)
[2022-03-13 06:31] LABS: BASOPHILS % (AUTO) 0.2 % (0.0-5.0); EOSINOPHILS % (AUTO) 0.4 % (0.0-8.0); HEMATOCRIT 44.6 % (42-54); LYMPHOCYTES % (AUTO) 1.8 % (21.0-51.0); MEAN CORPUSCULAR HGB CONC 34.1 g/dL (32.0-36.0); MONOCYTES % (AUTO) 0.4 % (3.0-13.0); NEUTROPHILS % (AUTO) 96.4 % (40.0-77.0); PLATELET COUNT (AUTO) 249 K/uL (130-400); RED BLOOD CELL COUNT(AUTO) 5.25 MIL/uL (4.50-6.20); RED CELL DISTRIBUTION WIDTH 12.6 % (11.0-15.5); WHITE BLOOD COUNT (AUTO) 13.2 K/uL (4.8-10.8)
[2022-03-13 06:48] LABS: ALBUMIN 3.3 g/dL (3.5-5.0); BILIRUBIN,TOTAL 1.5 mg/dL (0.2-1.0); CREATININE 1.1 mg/dL (0.5-1.5); POTASSIUM 3.5 mmol/L (3.5-5.1); TOTAL PROTEIN, SERUM 7.6 g/dL (6.0-8.3)
[2022-03-13] MEDS ORDERED: ONDANSETRON 4MG INJ IVP ONE (07:00)
[2022-03-13] MEDS ORDERED: MORPHINE 4 MG SYG IVP ONE (07:00)
[2022-03-13 07:24] LABS: APPEARANCE,URINE Clear (CLEAR); BILIRUBIN,URINE Negative (NEGATIVE); COLOR,URINE Dark Yellow (YELLOW); GLUCOSE, URINE (UA) >=1000 mg/dL (NEGATIVE); KETONES,URINE Trace mg/dL (NEGATIVE); LEUKOCYTE ESTERASE ,URINE Negative (NEGATIVE); NITRATE,URINE Negative (NEGATIVE); OCCULT BLOOD,URINE Small (NEGATIVE); PH,URINE 5.5 (5.0-8.0); PROTEIN,URINE POS 2+ mg/dL (NEGATIVE)
[2022-03-13 07:31] LABS: AMPHET/METH SCREEN,URINE NEGATIVE (NEGATIVE); BACTERIA,URINE Rare /HPF (None Seen); BARBITURATE SCREEN, URINE NEGATIVE (NEGATIVE); BENZODIAZEPINES SCREEN,URINE NEGATIVE (NEGATIVE); CANNABINOID SCREEN,URINE POSITIVE (NEGATIVE); COCAINE SCREEN,URINE NEGATIVE (NEGATIVE); OPIATE SCREEN,URINE NEGATIVE (NEGATIVE); PHENCYCLIDINE SCREEN,URINE NEGATIVE (NEGATIVE); RBC,URINE 0-1 /HPF (0-1); WBC,URINE None Seen /HPF (0-1)
[2022-03-13 07:32] LABS: MUCUS,URINE Few LPF (None Seen); SQUAMOUS EPITHELIAL CELL,UR 0-2 /HPF (0-2)
[2022-03-13] MEDS: ZOSYN 3.375GM +NS 50ML IV SCH (07:44)
[2022-03-13] MEDS ORDERED: IOHEXOL-350 75 ML VIAL IV ONE (07:59)
[2022-03-13] MEDS ORDERED: GLUCAGON 1MG KIT 1 MG ML IM PRN (09:00)
[2022-03-13] MEDS ORDERED: ONDANSETRON 4MG INJ IV PRN (09:00)
[2022-03-13] MEDS ORDERED: DEXTROSE 50%-WATER 50 ML DISP.SYRIN IV PRN (09:00)
[2022-03-13] MEDS ORDERED: FERR-63 PO (09:26)
[2022-03-13] MEDS ORDERED: GEMF600T89 PO (09:26)
[2022-03-13] MEDS ORDERED: PROP10TA10 PO (09:26)
[2022-03-13] MEDS ORDERED: ASPI-1443 PO (09:26)
[2022-03-13] MEDS ORDERED: GABA300C PO (09:26)
[2022-03-13] MEDS ORDERED: CLOP75TA32 PO (09:26)
[2022-03-13] MEDS ORDERED: IBUP-2077 PO (09:26)
[2022-03-13] MEDS ORDERED: SERT-440 PO (09:26)
[2022-03-13] MEDS ORDERED: CLIN-141 PO (09:26)
[2022-03-13] MEDS ORDERED: DAPA10TA PO (09:26)
[2022-03-13] MEDS ORDERED: PIOG15TA66 PO (09:26)
[2022-03-13] MEDS ORDERED: METF-446 PO (09:26)
[2022-03-13] MEDS ORDERED: INSU100I15 SQ (09:26)
[2022-03-13] MEDS ORDERED: SIMV-43 PO (09:26)
[2022-03-13] MEDS ORDERED: LOSA50TA64 PO (09:26)
[2022-03-13] MEDS ORDERED: INSU200I4 SQ (09:26)
[2022-03-13] MEDS ORDERED: EXENATIDE (09:26)
[2022-03-13] MEDS ORDERED: BUSP15TA3 PO (09:26)
[2022-03-13] MEDS ORDERED: MELO-106 PO (09:26)
[2022-03-13] MEDS: LACTATED RINGERS 1000ML 1,000 ML IV SCH ×2 (09:34→18:56)
[2022-03-13] MEDS: PANTOPRAZOLE 40 MG/VIAL IVP SCH (09:35)
[2022-03-13] MEDS: ENOXAPARIN SODIUM 40 MG/0.4 ML SYRINGE SQ SCH (09:35)
[2022-03-13] MEDS: INSULIN HUMULIN R 100 UNIT/ML 3ML SQ SCH ×3 (11:30→19:54)
[2022-03-13 12:42] VITALS: BP_SYST 172; BP_SYST 174; BP_DIAS 63; BP_DIAS 79
[2022-03-13] MEDS: KETOROLAC 15MG/ML VIAL (15MG/ML) IV PRN ×2 (15:13→21:10)
[2022-03-13 17:18] VITALS: BP 133/58
[2022-03-13 19:45] VITALS: BP 117/62
[2022-03-13 23:25] VITALS: BP 132/73
[2022-03-14] MEDS: KETOROLAC 15MG/ML VIAL (15MG/ML) IV PRN ×3 (03:27→17:36)
[2022-03-14] MEDS: LACTATED RINGERS 1000ML 1,000 ML IV SCH ×2 (04:05→09:56)
[2022-03-14 04:10] VITALS: BP 139/75
[2022-03-14 05:05] LABS: HEMATOCRIT 38.4 % (42-54); MEAN CORPUSCULAR HGB CONC 33.1 g/dL (32.0-36.0); MEAN CORPUSCULAR VOLUME 87.7 fL (79-99); RED BLOOD CELL COUNT(AUTO) 4.38 MIL/uL (4.50-6.20); RED CELL DISTRIBUTION WIDTH 12.9 % (11.0-15.5); WHITE BLOOD COUNT (AUTO) 15.7 K/uL (4.8-10.8)
[2022-03-14 05:22] LABS: ALBUMIN 2.6 g/dL (3.5-5.0); POTASSIUM 3.6 mmol/L (3.5-5.1); TOTAL PROTEIN, SERUM 6.5 g/dL (6.0-8.3)
[2022-03-14] MEDS: INSULIN HUMULIN R 100 UNIT/ML 3ML SQ SCH ×3 (07:05→16:15)
[2022-03-14 07:13] LABS: HEMOGLOBIN A1C 7.3 % (4.0-6.0)
[2022-03-14 08:04] VITALS: BP 136/67
[2022-03-14] MEDS: ZOSYN 3.375GM +NS 50ML IV SCH (09:55)
[2022-03-14] MEDS: ENOXAPARIN SODIUM 40 MG/0.4 ML SYRINGE SQ SCH (09:55)
[2022-03-14] MEDS: PANTOPRAZOLE 40 MG/VIAL IVP SCH (09:55)
[2022-03-14] MEDS ORDERED: OMEG-148 PO (10:37)
[2022-03-14] MEDS ORDERED: LEVO500T90 PO (10:37)
[2022-03-14] MEDS ORDERED: FENO145T26 PO (10:37)
[2022-03-14 11:56] VITALS: BP 148/61
[2022-03-14 18:05] VITALS: BP 145/71
== END 2022-03-14 18:00 | disposition home or self-care (01) ==
LOC: EDH 05:57 → EDHIP 08:49 → 3AH 11:46
PROVIDERS: ADMIT Hospitalist; ATTEND Hospitalist
DX: R11.2 Nausea with vomiting, unspecified (principal); R65.10 Systemic inflammatory response syndrome (SIRS) of non-infectious origin without acute organ dysfunction; R10.9 Unspecified abdominal pain; R74.01 Elevation of levels of liver transaminase levels; E87.2 Acidosis; L02.811 Cutaneous abscess of head [any part, except face]; I10 Essential (primary) hypertension; E11.9 Type 2 diabetes mellitus without complications; M19.90 Unspecified osteoarthritis, unspecified site; G47.33 Obstructive sleep apnea (adult) (pediatric); E78.5 Hyperlipidemia, unspecified; I25.10 Atherosclerotic heart disease of native coronary artery without angina pectoris; F41.9 Anxiety disorder, unspecified; Z79.899 Other long term (current) drug therapy; Z63.4 Disappearance and death of family member; Z86.718 Personal history of other venous thrombosis and embolism; Z89.611 Acquired absence of right leg above knee; Z95.5 Presence of coronary angioplasty implant and graft; Z96.652 Presence of left artificial knee joint
CPT/HCPCS: 36415 ×2; 74177; 80053 ×2; 80305; 81001; 82948 ×6; 83036; 83605 ×4; 83690; 84145 ×2; 84484; 85025; 85027; 87040 ×2; 87070; 87077; 87186; 93005; 96361 ×2; 96365; 96366; 96372 ×2; 96375 ×2; 96376 ×2; 99285; C9113 ×2; G0378 ×32; J1650 ×2; J1885 ×5; J2270; J2405; J2543 ×2; J7120 ×2; Q9967; 96374

== ENCOUNTER 2022-03-23 13:23 | Emergency (ER) | payer OTHER ==
[~2022-03-23] VITALS: Ht 180.3 cm; Wt 113.4 kg
[~2022-03-23 13:23] MED LIST changes: +ASPI-1443 PO; +BUSP15TA3 PO; -CARV6.2579 PO; +CLIN-141 PO; +CLOP75TA32 PO; +DAPA10TA PO; -DULO30CA2 PO; +EXENATIDE; +FENO145T26 PO; +FERR-63 PO; +GABA300C PO; +IBUP-2077 PO; +INSU100I15 SQ; +INSU200I4 SQ; +LEVO500T90 PO; -LOSA100T2 PO; +LOSA50TA64 PO; +MELO-106 PO; +METF-446 PO; +OMEG-148 PO; +PIOG15TA66 PO; +PROP10TA10 PO; +SERT-440 PO; +SIMV-43 PO
[2022-03-23 13:51] LABS: BASOPHILS % (AUTO) 0.5 % (0.0-5.0); EOSINOPHILS % (AUTO) 1.2 % (0.0-8.0); HEMATOCRIT 50.4 % (42-54); LYMPHOCYTES % (AUTO) 12.2 % (21.0-51.0); MEAN CORPUSCULAR HEMOGLOBIN 28.7 pg (27.0-33.0); MEAN CORPUSCULAR HGB CONC 32.9 g/dL (32.0-36.0); MONOCYTES % (AUTO) 7.5 % (3.0-13.0); PLATELET COUNT (AUTO) 349 K/uL (130-400); RED BLOOD CELL COUNT(AUTO) 5.79 MIL/uL (4.50-6.20); RED CELL DISTRIBUTION WIDTH 12.9 % (11.0-15.5); WHITE BLOOD COUNT (AUTO) 15.7 K/uL (4.8-10.8)
[2022-03-23 14:01] LABS: CREATININE 1.4 mg/dL (0.5-1.5)
[2022-03-23 14:06] LABS: ALBUMIN 3.8 g/dL (3.5-5.0); BILIRUBIN,TOTAL 0.5 mg/dL (0.2-1.0); TOTAL PROTEIN, SERUM 8.2 g/dL (6.0-8.3)
[2022-03-23 15:11] VITALS: BP 109/67
== END 2022-03-23 16:11 | disposition home or self-care (01) ==
LOC: EDH 13:23
DX: E11.649 Type 2 diabetes mellitus with hypoglycemia without coma (principal); I10 Essential (primary) hypertension; Z88.8 Allergy status to other drugs, medicaments and biological substances; Z79.899 Other long term (current) drug therapy; Z79.84 Long term (current) use of oral hypoglycemic drugs; Z79.4 Long term (current) use of insulin; Z90.89 Acquired absence of other organs; Z90.49 Acquired absence of other specified parts of digestive tract
CPT/HCPCS: 36415; 80053; 82948; 85025; 93005